=== PATIENT | male | born 1985 | race African-American/Black ===

== ENCOUNTER 2016-08-10 14:25 | Emergency (ER) | payer MEDICAID ==
--- NOTE | 2016-08-10 14:34 | ER Document Report ---
ED Medical Screen (RME) - General Chief Complaint: Flu Symptoms Stated Complaint: FLU LIKE SIMPTOMS Time seen by provider: 14:29 Mode of Arrival: Ambulatory Information source: Patient Notes: 31-year-old male presents to ED for flu-like symptoms. Bodyaches, fever, cough , nausea, vomiting diarrhea, sore throat, states even his testicles hurt. States when he lifts his testicles they were very painful. States they feel very weird. States she's never had any discomfort or change in his testicles before. Discussed condition with Dr. Tee will do ultrasound of testicles. Temperature in the ER 101.5 with a pulse 112 I have greeted and performed a rapid initial assessment of this patient. A comprehensive ED assessment and evaluation of the patient, analysis of test results and completion of medical decision making process will be conducted by an additional ED providers. TRAVEL OUTSIDE OF THE [place] IN LAST 30 DAYS: No - Related Data Allergies/Adverse Reactions: aspirin [Aspirin] Allergy (Verified 04/26/16 07:53) bees Allergy (Severe, Uncoded 04/26/16 07:53) Past Medical History - Social History Family history: Reviewed & Not Pertinent - Past Medical History Cardiac Medical History: Reports: Hx Hypertension Denies: Hx Coronary Artery Disease, Hx Heart Attack Pulmonary Medical History: Reports: Hx Asthma Denies: Hx Bronchitis, Hx COPD, Hx Pneumonia Neurological Medical History: Denies: Hx Cerebrovascular Accident, Hx Seizures GI Medical History: Reports: Hx Gastroesophageal Reflux Disease Musculoskeltal Medical History: Denies Hx Arthritis, Reports Hx Musculoskeletal Deformity, Reports Hx Musculoskeletal Trauma Past Surgical History: Reports: Hx Orthopedic Surgery - Tendon repair and right ankle - Immunizations Immunizations up to date: Yes Hx Diphtheria, Pertussis, Tetanus Vaccination: Yes - 2013
[2016-08-10] MEDS ORDERED: ACETAMINOPHEN 325 MG TABLET PO ONE (14:35)
[2016-08-10 15:00] LABS: ABSOLUTE BASOPHILS # (AUTO) 0.1 10^3/uL (0.0-0.2); ABSOLUTE LYMPHOCYTES (AUTO) 0.8 10^3/uL (0.5-4.7); ABSOLUTE MONOCYTES (AUTO) 0.9 10^3/uL (0.1-1.4); ABSOLUTE NEUT (AUTO) 4.6 10^3/uL (1.7-8.2); BASOPHILS % (AUTO) 0.9 % (0-2); EOSINOPHILS % (AUTO) 0.7 % (0-6); HEMATOCRIT 43.1 % (37.9-51.0); HEMOGLOBIN 14.2 g/dL (13.5-17.0); HGB HCT DIFFERENCE -0.5; LYMPHOCYTES % (AUTO) 12.5 % (13-45); MEAN CORPUSCULAR HEMOGLOBIN 30.3 pg (27.0-33.4); MEAN CORPUSCULAR HGB CONC 32.9 g/dL (32.0-36.0); MEAN CORPUSCULAR VOLUME 92 fl (80-97); MONOCYTES % (AUTO) 13.8 % (3-13); RED BLOOD COUNT 4.68 10^6/uL (4.35-5.55); RED CELL DISTRIBUTION WIDTH 13.4 % (11.5-14.0); SEGMENTED NEUTROPHILS % (AUTO) 72.1 % (42-78); WHITE BLOOD COUNT 6.3 10^3/uL (4.0-10.5)
[2016-08-10 15:22] LABS: BLOOD UREA NITROGEN 10 mg/dL (7-20); CALCIUM 9.1 mg/dL (8.4-10.2); CREATININE RESULT 1.31 mg/dL (0.52-1.25); GLUCOSE 157 mg/dL (75-110)
[2016-08-10 15:23] LABS: ALANINE AMINOTRANSFERASE 29 U/L (21-72); ALBUMIN 3.5 g/dL (3.5-5.0); ALKALINE PHOSPHATASE 57 U/L (38-126); ANION GAP 10 (5-19); ASPARTATE AMINO TRANSFERASE 25 U/L (17-59); BILIRUBIN,TOTAL 0.6 mg/dL (0.2-1.3); CARBON DIOXIDE 28 mmol/L (22-30); CHLORIDE 101 mmol/L (98-107); POTASSIUM 4.3 mmol/L (3.6-5.0); SODIUM 138.6 mmol/L (137-145); TOTAL PROTEIN 6.5 g/dL (6.3-8.2)
[2016-08-10] MEDS ORDERED: ONDANSETRON 4 MG TAB.RAPDIS PO ONE (17:09)
--- NOTE | 2016-08-10 17:14 | ER Document Report ---
ED General - General Chief Complaint: Flu Symptoms Stated Complaint: FLU LIKE SIMPTOMS Mode of Arrival: Ambulatory Information source: Patient Notes: Patient presents emergency department with complaints of flulike symptoms for the last 2-3 days. Patient reports testicular swelling this morning. He reports more like testicular tenderness and feels achy when he lifts his testicles. Denies pain with void. Reports fever vomiting and some diarrhea this morning. Denies penile discharge TRAVEL OUTSIDE OF THE [place] IN LAST 30 DAYS: No - HPI Onset: Other Onset/Duration: Persistent Quality of pain: Achy Severity: Severe Pain Level: 4 Associated symptoms: Diarrhea, Fever, Vomiting Exacerbated by: Denies Relieved by: Denies Similar symptoms previously: No Recently seen / treated by doctor: No - Related Data Allergies/Adverse Reactions: aspirin [Aspirin] Allergy (Verified 08/10/16 14:31) bees Allergy (Severe, Uncoded 08/10/16 14:31) Past Medical History - General Information source: Patient - Social History Smoking Status: Current Every Day Smoker Cigarette use (# per day): Yes Chew tobacco use (# tins/day): No Frequency of alcohol use: None Drug Abuse: None Occupation: [email or web address] Lives with: Family Family History: Reviewed & Not Pertinent, Arthritis, CAD - grandfather, DM - mother and father, Hyperlipidemia, Hypertension - grandfather father, Malignancy Patient has suicidal ideation: No Patient has homicidal ideation: No - Past Medical History Cardiac Medical History: Reports: Hx Hypertension Denies: Hx Coronary Artery Disease, Hx Heart Attack Pulmonary Medical History: Reports: Hx Asthma Denies: Hx Bronchitis, Hx COPD, Hx Pneumonia Neurological Medical History: Denies: Hx Cerebrovascular Accident, Hx Seizures Renal/ Medical History: Denies: Hx Peritoneal Dialysis GI Medical History: Reports: Hx Gastroesophageal Reflux Disease Musculoskeltal Medical History: Denies Hx Arthritis, Reports Hx Musculoskeletal Deformity, Reports Hx Musculoskeletal Trauma Past Surgical History: Reports: Hx Orthopedic Surgery - Tendon repair and right ankle - Immunizations Immunizations up to date: Yes Hx Diphtheria, Pertussis, Tetanus Vaccination: Yes - 2013 Review of Systems - Review of Systems Notes: Review HPI for review of systems., All other systems negative Physical Exam - Vital signs Vitals: Temp Pulse Resp BP Pulse Ox 101.5 F H 112 H 20 144/83 H 96 08/10/16 14:31 08/10/16 14:31 08/10/16 14:31 08/10/16 14:31 08/10/16 14:31 Course - Vital Signs Vital signs: Temp Pulse Resp BP Pulse Ox 99.4 F 95 16 153/91 H 98 08/10/16 18:23 08/10/16 18:23 08/10/16 18:23 08/10/16 18:23 08/10/16 18:23 - Laboratory Result Diagrams: 08/10/16 14:40 08/10/16 14:40 Laboratory results interpreted by me: 08/10/16 08/10/16 08/10/16 14:40 14:40 17:40 Lymphocytes % 12.5 L Monocytes % 13.8 H Creatinine 1.31 H Glucose 157 H Ur Leukocyte Esterase LARGE H Urine Ascorbic Acid 20 H - Transfer of Care Notes: 08/10/16 18:20 Patient has his daughter with him, testicular exam deferred because of this. I have consulted the attending provider dr gross per [facility] guidelines. pt c/o, labs and us reviewed, agrees with plan of discharge tonyaro, patient instructed on plan of care. Patient does not have a primary care provider he was instructed on the [facility]. He was also instructed for worsening of symptoms to return to the emergency department. 08/10/16 18:26 Patient reports his blood pressure medication ran out lisinopril 10 mg by mouth daily. He is requesting a refill until he can follow-up with the [facility]. Discharge - Discharge Clinical Impression: Flu-like symptoms, Testicular microlithiasis, elevated blood pressure Urinary tract infection Qualifiers: Urinary tract infection type: site unspecified Hematuria presence: without hematuria Qualified Code(s): N39.0 - Urinary tract infection, site not specified Condition: Stable Disposition: HOME, SELF-CARE Instructions: Oral Narcotic Medication ([facility]), Urinary Tract Infection ([facility]), Ciprofloxacin ([facility]) Additional Instructions: *You have been evaluated for flu like symptoms, UTI, microlithiasis, elevated blood pressure *Take medication as prescribed *Push fluids *Monitor your temperature, take tyelnol as indicated *Follow up with a primary care provider for recheck within one week *Monitor your blood pressure. Your blood pressure was elevated today. This may be because you were anxious, in pain or because you need medication. It is important to follow up with your primary care provider for full evaluation. *Plan urine recheck in one week *Return to ED for worsening condition, changes, needs Prescriptions: Ciprofloxacin HCl [Cipro 500 mg Tablet] 500 mg PO BID #10 tablet Lisinopril 10 mg PO DAILY #30 tablet Promethazine HCl [Phenergan 25 mg Tablet] 25 - 50 mg PO ASDIR PRN #12 tablet PRN Reason: Forms: Elevated Blood Pressure, Return to School, Return to Work
[2016-08-10 17:58] LABS: APPEARANCE,URINE SLIGHTLY-CLOUDY; BILIRUBIN,URINE NEGATIVE (NEGATIVE); GLUCOSE, URINE NEGATIVE (NEGATIVE); KETONES,URINE NEGATIVE (NEGATIVE); LEUKOCYTE ESTERASE,URINE LARGE (NEGATIVE); NITRITE,URINE NEGATIVE (NEGATIVE); PROTEIN,URINE NEGATIVE (NEGATIVE); URINE SPECIFIC GRAVITY 1.016; UROBILINOGEN,URINE NEGATIVE mg/dL (<2.0)
[2016-08-10] MEDS ORDERED: HYDROCODONE/ACETAMINOPHEN 5-325 MG 6 TAB/DSPK PO PRN (18:10)
[2016-08-10] MEDS ORDERED: CIPROFLOXACIN HCL 500 MG TABLET PO ONE (18:10)
[2016-08-10 18:43] VITALS: BP 153/91
== END 2016-08-10 18:43 | disposition home or self-care (01) ==
LOC: ER 14:25
DX: R19.7 Diarrhea, unspecified (principal); R11.10 Vomiting, unspecified; N39.0 Urinary tract infection, site not specified; N50.9 Disorder of male genital organs, unspecified; R50.9 Fever, unspecified; I10 Essential (primary) hypertension; J45.909 Unspecified asthma, uncomplicated; F17.210 Nicotine dependence, cigarettes, uncomplicated; Z87.19 Personal history of other diseases of the digestive system; Z91.030 Bee allergy status; Z88.6 Allergy status to analgesic agent
CPT/HCPCS: 99284; 36415; 87070; 87880; 85025; 80053; 81001; 87804; 71020; 76870; 93976; J3490 ×2; S0119

== ENCOUNTER 2016-09-01 11:02 | Emergency (ER) | payer MEDICAID ==
[2016-09-01] MEDS ORDERED: IBUPROFEN 800 MG TABLET PO ONE (11:30)
--- NOTE | 2016-09-01 11:32 | ER Document Report ---
ED Medical Screen (RME) - General Chief Complaint: Foot Pain Stated Complaint: FOOT SWELLING Mode of Arrival: Wheelchair Information source: Patient Notes: Patient presents to the emergency department with complaints of right foot pain and swelling. Patient reports this morning he was spooked by a cat and he hurt his foot. Obvious swelling noted good cap refill TRAVEL OUTSIDE OF THE [place] IN LAST 30 DAYS: No - Related Data Allergies/Adverse Reactions: bees Allergy (Severe, Uncoded 09/01/16 11:31) Past Medical History - Social History Family history: Reviewed & Not Pertinent - Past Medical History Cardiac Medical History: Reports: Hx Hypertension Denies: Hx Coronary Artery Disease, Hx Heart Attack Pulmonary Medical History: Reports: Hx Asthma Denies: Hx Bronchitis, Hx COPD, Hx Pneumonia Neurological Medical History: Denies: Hx Cerebrovascular Accident, Hx Seizures Renal/ Medical History: Denies: Hx Peritoneal Dialysis GI Medical History: Reports: Hx Gastroesophageal Reflux Disease Musculoskeltal Medical History: Denies Hx Arthritis, Reports Hx Musculoskeletal Deformity, Reports Hx Musculoskeletal Trauma Past Surgical History: Reports: Hx Orthopedic Surgery - Tendon repair and right ankle - Immunizations Immunizations up to date: Yes Hx Diphtheria, Pertussis, Tetanus Vaccination: Yes - 2013 Physical Exam - Vital signs Vitals: Temp Pulse Resp BP Pulse Ox 98.8 F 114 H 16 115/60 96 09/01/16 11:06 09/01/16 11:06 09/01/16 11:06 09/01/16 11:06 09/01/16 11:06 Course - Vital Signs Vital signs: Temp Pulse Resp BP Pulse Ox 98.8 F 114 H 16 115/60 96 09/01/16 11:06 09/01/16 11:06 09/01/16 11:06 09/01/16 11:06 09/01/16 11:06
--- NOTE | 2016-09-01 12:51 | ER Document Report ---
HPI - HPI Patient complains to provider of: foot pain Onset: This morning Onset/Duration: Sudden Quality of pain: Achy Severity: Severe Pain Level: 4 Context: Patient presents this morning with complaints of right foot pain after a cat jumped on front of him and scared him. He reports he was on his foot. Now he has swelling pain. Reports pain when walking. Associated Symptoms: None Exacerbated by: Movement, Walking Relieved by: Denies Similar symptoms previously: No Recently seen / treated by doctor: No - DERM Skin Color: Normal Past Medical History - General Information source: Patient - Social History Smoking Status: Current Every Day Smoker Cigarette use (# per day): Yes Chew tobacco use (# tins/day): No Frequency of alcohol use: None Drug Abuse: None Lives with: Family Family History: Reviewed & Not Pertinent, Arthritis, CAD - grandfather, DM - mother and father, Hyperlipidemia, Hypertension - grandfather father, Malignancy Patient has suicidal ideation: No Patient has homicidal ideation: No - Past Medical History Cardiac Medical History: Reports: Hx Hypertension Denies: Hx Coronary Artery Disease, Hx Heart Attack Pulmonary Medical History: Reports: Hx Asthma Denies: Hx Bronchitis, Hx COPD, Hx Pneumonia Neurological Medical History: Denies: Hx Cerebrovascular Accident, Hx Seizures Renal/ Medical History: Denies: Hx Peritoneal Dialysis GI Medical History: Reports: Hx Gastroesophageal Reflux Disease Musculoskeltal Medical History: Denies Hx Arthritis, Reports Hx Musculoskeletal Deformity, Reports Hx Musculoskeletal Trauma Past Surgical History: Reports: Hx Orthopedic Surgery - Tendon repair and right ankle - Immunizations Immunizations up to date: Yes Hx Diphtheria, Pertussis, Tetanus Vaccination: Yes - 2014 [facility] Provider Document - CONSTITUTIONAL Agree With Documented VS: Yes Exam Limitations: No Limitations General Appearance: WD/WN, Mild Distress - Winces with foot is palpated - INFECTION CONTROL TRAVEL OUTSIDE OF THE [place] IN LAST 30 DAYS: No - HEENT HEENT: Atraumatic, Normocephalic - NECK Neck: Supple - RESPIRATORY Respiratory: Breath Sounds Normal O2 Sat by Pulse Oximetry: 96 - CARDIOVASCULAR Cardiovascular: Tachycardia - MUSCULOSKELETAL/EXTREMETIES Musculoskeletal/Extremeties: MAEW, FROM, Tender - right dorsal midfoot with swelling, no warmth/erythema, good cap refill, reports he cannot extend/flex foot or wiggle his toes- healed surgical scar noted - NEURO Level of Consciousness: Awake, Alert, Appropriate - DERM Integumentary: Warm, Dry Adult Front & Back Diagram: 1 - swelling Course - Re-evaluation Re-evalutation: 09/01/16 13:[address] Clark to take a look at patient foot because he reports he cannot flex or extend his foot. He also reports he cannot wiggle his toes. Patient reports he hasn't been able to wiggle his toes as much since he had that tendon injury but morbidly he can now. Dr. Clark in to assess patient's foot. He agrees is noninfectious. Good cap refill, Pt has swelling dorsally across top of foot, +1. Patient was instructed on the importance of follow-up with Dr. Scott for recheck. He verbalized understanding. He was also instructed on signs and symptoms of infection and instructed to return to the emergency department immediately for any of those symptoms. - Vital Signs Vital signs: Temp Pulse Resp BP Pulse Ox 98.8 F 114 H 16 115/60 96 09/01/16 11:06 09/01/16 11:06 09/01/16 11:06 09/01/16 11:06 09/01/16 11:06 - Diagnostic Test Radiology reviewed: Image reviewed, Reports reviewed - IMPRESSION: DORSAL SOFT TISSUE SWELLING. NO ACUTE BONY FINDINGS Procedures - Immobilization Right Foot Pre-Proc Neuro Vasc Exam: Normal Immobilizer type: Zeferino wrap Performed by: PCT Post-Proc Neuro Vasc Exam: Unchanged from pre-exam Discharge - Discharge Clinical Impression: Right foot pain Contusion, foot Qualifiers: Encounter type: initial encounter Laterality: right Qualified Code(s): S90.31XA - Contusion of right foot, initial encounter Condition: Stable Disposition: HOME, SELF-CARE Instructions: Contusion ([facility]), Oral Narcotic Medication ([facility]), Zeferino Wrap ([facility]), Ice & Elevation ([facility]), Use of Crutches ([facility]) Additional Instructions: *You have been evaluated for right foot pain, contusion *Maintain the Zeferino wrap and use the crutches for the next 3 days. *Rest/Ice/Elevate your foot *Follow up with orthopedics- Dr Scott tomorrow-call for an appointment *Take medication as prescribed *Return to the emergency department immediately for any signs of infection such as warmth redness increased swelling and increased pain *Return to ED for worsening condition, changes, needs Prescriptions: Oxycodone HCl/Acetaminophen [Percocet 5-325 mg Tablet] 1 - 2 tab PO ASDIR PRN # 15 tablet PRN Reason: Forms: Return to Work
[2016-09-01] MEDS ORDERED: OXYCODONE-ACETAMINOPHEN 5-325 MG TABLET PO ONE (13:06)
[2016-09-01 13:37] VITALS: BP 140/85
== END 2016-09-01 13:37 | disposition home or self-care (01) ==
LOC: ER 11:02
DX: S90.31XA Contusion of right foot, initial encounter (principal); M79.671 Pain in right foot; F17.210 Nicotine dependence, cigarettes, uncomplicated; X58.XXXA Exposure to other specified factors, initial encounter; I10 Essential (primary) hypertension
CPT/HCPCS: 99283; 73630; J3490

== ENCOUNTER 2016-10-10 04:18 | Emergency (ER) | payer SELFPAY ==
[2016-10-10] MEDS ORDERED: LIDOCAINE 5% (700 MG) TRANSDERMAL ADH..PATCH TP ONE (06:46)
[2016-10-10] MEDS ORDERED: ACETAMINOPHEN 325 MG TABLET PO ONE (06:46)
--- NOTE | 2016-10-10 08:23 | ER Document Report ---
ED General - General Chief Complaint: Fall Stated Complaint: FALL,BACK PAIN TRAVEL OUTSIDE OF THE [place] IN LAST 30 DAYS: No - HPI Patient complains to provider of: slipped and fall head pain back pain Notes: Patient coming in for complaints of head pain and lower back pain after a slip and fall. Patient states he was staying at a local motel [place] he slipped on some water hitting his head on a countertop states he is unsure about loss of consciousness but states he was a little dazed and confused upon EMS arrival. Patient was placed in a c-collar by EMS. Patient also complains of lower back pain. Denies any bowel or bladder incontinence. Denies any numbness tingling going down the legs. Patient is requesting water to drink - Related Data Allergies/Adverse Reactions: bees Allergy (Severe, Uncoded 09/01/16 11:31) Past Medical History - Social History Smoking Status: Unknown if Ever Smoked Family History: Reviewed & Not Pertinent, Arthritis, CAD - grandfather, DM - mother and father, Hyperlipidemia, Hypertension - grandfather father, Malignancy - Past Medical History Cardiac Medical History: Reports: Hx Hypertension Denies: Hx Coronary Artery Disease, Hx Heart Attack Pulmonary Medical History: Reports: Hx Asthma Denies: Hx Bronchitis, Hx COPD, Hx Pneumonia Neurological Medical History: Denies: Hx Cerebrovascular Accident, Hx Seizures Renal/ Medical History: Denies: Hx Peritoneal Dialysis GI Medical History: Reports: Hx Gastroesophageal Reflux Disease Musculoskeltal Medical History: Denies Hx Arthritis, Reports Hx Musculoskeletal Deformity, Reports Hx Musculoskeletal Trauma Past Surgical History: Reports: Hx Orthopedic Surgery - Tendon repair and right ankle - Immunizations Immunizations up to date: Yes Hx Diphtheria, Pertussis, Tetanus Vaccination: Yes - 2013 Review of Systems - Review of Systems Constitutional: No symptoms reported EENT: Other - Head injury low back pain Cardiovascular: No symptoms reported Respiratory: No symptoms reported Gastrointestinal: No symptoms reported Genitourinary: No symptoms reported Male Genitourinary: No symptoms reported Musculoskeletal: No symptoms reported Skin: No symptoms reported Hematologic/Lymphatic: No symptoms reported Neurological/Psychological: No symptoms reported Physical Exam - Vital signs Vitals: Temp Pulse Resp BP Pulse Ox 98.5 F 75 18 153/96 H 98 10/10/16 04:20 10/10/16 04:20 10/10/16 04:20 10/10/16 04:20 10/10/16 04:20 Interpretation: Normal - General General appearance: Appears well, Alert - HEENT Head: Normocephalic, Atraumatic Eyes: Normal Pupils: PERRL Notes: The midline tenderness upon palpation of the neck. Patient has no distracting injuries. Patient's was able to be cleared by [facility] criteria. - Respiratory Respiratory status: No respiratory distress Chest status: Nontender Breath sounds: Normal Chest palpation: Normal - Cardiovascular Rhythm: Regular Heart sounds: Normal auscultation Murmur: No - Abdominal Inspection: Normal Distension: No distension Bowel sounds: Normal Tenderness: Nontender Organomegaly: No organomegaly - Back Back: Normal, Nontender - Extremities General upper extremity: Normal inspection, Nontender, Normal color, Normal ROM , Normal temperature General lower extremity: Normal inspection, Nontender, Normal color, Normal ROM , Normal temperature, Normal weight bearing. No: Sallie's sign - Neurological Neuro grossly intact: Yes Cognition: Normal Orientation: AAOx4 [place] Coma Scale Eye Opening: Spontaneous Hui Coma Scale Verbal: Oriented Hui Coma Scale Motor: Obeys Commands Hui Coma Scale Total: 15 Speech: Normal Motor strength normal: LUE, RUE, LLE, RLE Sensory: Normal - Psychological Associated symptoms: Normal affect, Normal mood - Skin Skin Temperature: Warm Skin Moisture: Dry Skin Color: Normal Course - Re-evaluation Re-evalutation: 10/10/16 14:48 CT of the head was performed on lumbar spine negative. Patient has no signs of serious etiology are critically injury at this time. Because of the patient's possible loss of consciousness and days infusion patient possibly has suffered a concussion will hold off on any narcotic pain medication patient was discharged home - Vital Signs Vital signs: Temp Pulse Resp BP Pulse Ox 97.9 F 73 18 147/89 H 98 10/10/16 08:27 10/10/16 08:27 10/10/16 08:27 10/10/16 08:27 10/10/16 08:27 Discharge - Discharge Clinical Impression: Fall Qualifiers: Encounter type: initial encounter Qualified Code(s): W19.XXXA - Unspecified fall, initial encounter Closed head injury Qualifiers: Encounter type: initial encounter Qualified Code(s): S09.90XA - Unspecified injury of head, initial encounter Low back pain Qualifiers: Chronicity: acute Back pain laterality: bilateral Sciatica presence: without sciatica Qualified Code(s): M54.5 - Low back pain Condition: Good Disposition: HOME, SELF-CARE Instructions: Low Back Pain ([facility]), Stretching Exercises for the Back ([facility]), Head Injury Precautions ([facility]), Concussion ([facility]) Additional Instructions: Drink plenty of water take medications as prescribed. You may take Tylenol also for pain control. Prescriptions: Ketorolac Tromethamine 10 mg PO BID #14 tablet Forms: Return to Work Referrals: COLEEN SALAZAR [employer] [Primary Care Provider] - Follow up as needed
[2016-10-10 08:29] VITALS: BP 147/89
== END 2016-10-10 08:39 | disposition home or self-care (01) ==
LOC: ER 04:18
DX: S09.90XA Unspecified injury of head, initial encounter (principal); M54.5 Low back pain; W01.198A Fall on same level from slipping, tripping and stumbling with subsequent striking against other object, initial encounter; Y92.59 Other trade areas as the place of occurrence of the external cause; R41.0 Disorientation, unspecified; R51 Headache; I10 Essential (primary) hypertension; J45.909 Unspecified asthma, uncomplicated
CPT/HCPCS: 70450; 72110; 99284

== ENCOUNTER 2016-12-20 19:38 | Emergency (ER) | payer SELFPAY ==
--- NOTE | 2016-12-20 21:01 | RADIOLOGY REPORT (SQ) ---
EXAM DESCRIPTION: FOOT RIGHT COMPLETE COMPLETED DATE/TIME: 12/20/2016 8:33 pm REASON FOR STUDY: PAIN COMPARISON: 09/01/2016 NUMBER OF VIEWS: Three views. TECHNIQUE: AP, lateral and oblique radiographic images acquired of the right foot. LIMITATIONS: None. FINDINGS: MINERALIZATION: Normal. BONES: No acute fracture or dislocation. No worrisome bone lesions. JOINTS: No effusions. SOFT TISSUES: No soft tissue swelling. No foreign body. OTHER: No other significant finding. IMPRESSION: No evidence for acute fracture or dislocation. Other findings as noted above TECHNICAL DOCUMENTATION: JOB ID: [id number] To- All Rights Reserved
[2016-12-20] MEDS ORDERED: HYDROMORPHONE HCL INJ/PF 2 MG/ML AMPULE IM ONE (21:28)
--- NOTE | 2016-12-20 21:53 | ER Document Report ---
ED General - General Chief Complaint: Jaw Pain Stated Complaint: FALL/LEFT FOOT,LEG AND FACE PAIN Time Seen by Provider: 12/20/16 21:21 Mode of Arrival: Wheelchair Notes: 31-year-old male presents with complaints of right foot pain and jaw pain. Patient notes he fell striking both while he was changing a tire. Denies any other complaints TRAVEL OUTSIDE OF THE [place] IN LAST 30 DAYS: No - HPI Onset: Just prior to arrival Onset/Duration: Sudden Quality of pain: Achy Severity: Mild Pain Level: 1 Associated symptoms: Body/muscle aches Exacerbated by: Movement Relieved by: Denies Similar symptoms previously: Yes Recently seen / treated by doctor: Yes - Related Data Allergies/Adverse Reactions: bees Allergy (Severe, Uncoded 09/01/16 11:31) Past Medical History - Social History Smoking Status: Never Smoker Cigarette use (# per day): No Chew tobacco use (# tins/day): No Smoking Education Provided: No Family History: Reviewed & Not Pertinent, Arthritis, CAD - grandfather, DM - mother and father, Hyperlipidemia, Hypertension - grandfather father, Malignancy Patient has suicidal ideation: No Patient has homicidal ideation: No - Past Medical History Cardiac Medical History: Reports: Hx Hypertension Denies: Hx Coronary Artery Disease, Hx Heart Attack Pulmonary Medical History: Reports: Hx Asthma Denies: Hx Bronchitis, Hx COPD, Hx Pneumonia Neurological Medical History: Denies: Hx Cerebrovascular Accident, Hx Seizures Renal/ Medical History: Denies: Hx Peritoneal Dialysis GI Medical History: Reports: Hx Gastroesophageal Reflux Disease Musculoskeltal Medical History: Denies Hx Arthritis, Reports Hx Musculoskeletal Deformity, Reports Hx Musculoskeletal Trauma Past Surgical History: Reports: Hx Orthopedic Surgery - Tendon repair and right ankle - Immunizations Immunizations up to date: Yes Hx Diphtheria, Pertussis, Tetanus Vaccination: Yes - 2013 Review of Systems - Review of Systems Notes: REVIEW OF SYSTEMS: CONSTITUTIONAL : Denies fever, chills, or sweats. Denies recent illness. EENT: Denies eye, ear, throat, or mouth pain or symptoms. Denies nasal or sinus congestion or discharge. Denies throat, tongue, or mouth swelling or difficulty swallowing. The jaw pain CARDIOVASCULAR: Denies chest pain. Denies palpitations or racing or irregular heart beat. Denies ankle edema. RESPIRATORY: Denies cough, cold, or chest congestion. Denies shortness of breath, difficulty breathing, or wheezing. GASTROINTESTINAL: Denies abdominal pain or distention. Denies nausea, vomiting , or diarrhea. Denies blood in vomitus, stools, or per rectum. Denies black, tarry stools. Denies constipation. GENITOURINARY: Denies difficulty urinating, painful urination, burning, frequency, blood in urine, or discharge. MUSCULOSKELETAL: Admits to right foot pain SKIN: Denies rash, lesions or sores. HEMATOLOGIC : Denies easy bruising or bleeding. LYMPHATIC: Denies swollen, enlarged glands. NEUROLOGICAL: Denies confusion or altered mental status. Denies passing out or loss of consciousness. Denies dizziness or lightheadedness. Denies headache. Denies weakness or paralysis or loss of use of either side. Denies problems with gait or speech. Denies sensory loss, numbness, or tingling. Denies seizures. PSYCHIATRIC: Denies anxiety or stress. Denies depression, suicidal ideation, or homicidal ideation. ALL OTHER SYSTEMS REVIEWED AND NEGATIVE. Dictation was performed using [email or web address] voice recognition software PHYSICAL EXAMINATION: GENERAL: Well-appearing, well-nourished and in no acute distress. HEAD: Atraumatic, normocephalic. EYES: Pupils equal round and reactive to light, extraocular movements intact, sclera anicteric, conjunctiva are normal. ENT: Nares patent, oropharynx clear without exudates. Moist mucous membranes. NECK: Normal range of motion, supple without lymphadenopathy clicking o nthe left noted when opening his jaw LUNGS: Breath sounds clear to auscultation bilaterally and equal. No wheezes rales or rhonchi. HEART: Regular rate and rhythm without murmurs ABDOMEN: Soft, nontender, nondistended abdomen. No guarding, no rebound. No masses appreciated. Musculoskeletal: Normal range of motion, no pitting or edema. No cyanosis. NEUROLOGICAL: Cranial nerves grossly intact. Normal speech, normal gait. Normal sensory, motor exams PSYCH: Normal mood, normal affect. SKIN: old scar right foot Physical Exam - Vital signs Vitals: Temp Pulse Resp BP Pulse Ox 97.9 F 113 H 16 150/92 H 98 12/20/16 19:42 12/20/16 19:42 12/20/16 19:42 12/20/16 19:42 12/20/16 19:42 Course - Re-evaluation Re-evalutation: 12/20/16 21:[address] are pending at this time 12/20/16 22:[address] noted no acute abnormality. will dc home with pain control and follow up with ENT 12/20/16 22:58 After performing a Medical Screening Examination, I estimate there is LOW risk for INTRACRANIAL HEMORRHAGE, UNSTABLE SPINE FRACTURE, CENTRAL CORD SYNDROME, CAUDA EQUINA, THORACIC AORTIC DISSECTION, PNEUMOTHORAX, PERFORATED BOWEL, RUPTURED ABDOMINAL AORTIC ANEURYSM, ACUTE TENDON RUPTURE, COMPARTMENT SYNDROME, or OPEN FRACTURE, thus I consider the discharge disposition reasonable. Also, there is no evidence or peritonitis, sepsis, or toxicity. I have reevaluated this patient multiple times and no significant life threatening changes are noted. The patient and I have discussed the diagnosis and risks, and we agree with discharging home to follow-up with their primary doctor with the understanding that symptoms and presentations can change. We also discussed returning to the Emergency Department immediately if new or worsening symptoms occur. We have discussed the symptoms which are most concerning (e.g., bloody stool, fever, changing or worsening pain, vomiting) that necessitate immediate return. - Vital Signs Vital signs: Temp Pulse Resp BP Pulse Ox 97.9 F 113 H 16 150/92 H 98 12/20/16 19:42 12/20/16 19:42 12/20/16 19:42 12/20/16 19:42 12/20/16 19:42 - Diagnostic Test Radiology reviewed: Image reviewed, Reports reviewed Discharge - Discharge Clinical Impression: Jaw pain Fall Qualifiers: Encounter type: initial encounter Qualified Code(s): W19.XXXA - Unspecified fall, initial encounter Foot pain Qualifiers: Laterality: right Qualified Code(s): M79.671 - Pain in right foot Condition: Stable Disposition: HOME, SELF-CARE Instructions: Jaw Dislocation ([facility]) Additional Instructions: call for appointment with [facility] * Directions * Website * Address: [address], [place] [address] * Prescriptions: Hydrocodone/Acetaminophen [Clayton 5-325 mg Tablet] 1 tab PO Q6 #10 tablet
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
[2016-12-21 01:12] VITALS: BP 149/95
== END 2016-12-20 23:15 | disposition home or self-care (01) ==
LOC: ER 19:38
DX: M79.671 Pain in right foot (principal); R68.84 Jaw pain; W19.XXXA Unspecified fall, initial encounter; Y93.89 Activity, other specified; I10 Essential (primary) hypertension; J45.909 Unspecified asthma, uncomplicated; Z91.013 Allergy to seafood
CPT/HCPCS: 99284; 96372; 73630; 70486; J1170

== ENCOUNTER 2017-02-16 16:04 | Emergency (ER) | payer SELFPAY ==
[2017-02-16] MEDS ORDERED: HYDROCODONE/ACETAMINOPHEN 5-325 MG TABLET PO ONE (16:14)
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
[2017-02-16] MEDS ORDERED: MORPHINE SULFATE 10 MG/ML INJ IV ONE (17:42)
== END 2017-02-16 18:38 | disposition short-term general hospital (02) ==
LOC: ER 16:04
PROC: 2W3CX1Z Immobilization of Right Lower Arm using Splint (ICD-10-PCS; principal; 2017-02-16)
DX: S62.304B Unspecified fracture of fourth metacarpal bone, right hand, initial encounter for open fracture (principal); X95.9XXA Assault by unspecified firearm discharge, initial encounter; Y93.89 Activity, other specified; Y92.830 Public park as the place of occurrence of the external cause; R20.8 Other disturbances of skin sensation; I10 Essential (primary) hypertension; F17.200 Nicotine dependence, unspecified, uncomplicated; J45.909 Unspecified asthma, uncomplicated; Z91.030 Bee allergy status
CPT/HCPCS: 99285; 96374; 73130; 29125; J2270

== ENCOUNTER 2017-02-25 11:58 | Emergency (ER) | payer SELFPAY ==
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
[2017-02-25 12:38] LABS: ABSOLUTE BASOPHILS # (AUTO) 0.1 10^3/uL (0.0-0.2); ABSOLUTE EOSINOPHILS # (AUTO) 0.1 10^3/uL (0.0-0.6); ABSOLUTE LYMPHOCYTES (AUTO) 2.3 10^3/uL (0.5-4.7); ABSOLUTE MONOCYTES (AUTO) 0.6 10^3/uL (0.1-1.4); ABSOLUTE NEUT (AUTO) 5.9 10^3/uL (1.7-8.2); BASOPHILS % (AUTO) 0.9 % (0-2); EOSINOPHILS % (AUTO) 0.9 % (0-6); HEMATOCRIT 42.8 % (37.9-51.0); HEMOGLOBIN 14.4 g/dL (13.5-17.0); HGB HCT DIFFERENCE 0.4; LYMPHOCYTES % (AUTO) 25.3 % (13-45); MEAN CORPUSCULAR HEMOGLOBIN 31.3 pg (27.0-33.4); MEAN CORPUSCULAR HGB CONC 33.7 g/dL (32.0-36.0); MEAN CORPUSCULAR VOLUME 93 fl (80-97); MONOCYTES % (AUTO) 6.3 % (3-13); RED CELL DISTRIBUTION WIDTH 13.3 % (11.5-14.0); SEGMENTED NEUTROPHILS % (AUTO) 66.6 % (42-78); WHITE BLOOD COUNT 8.9 10^3/uL (4.0-10.5)
[2017-02-25] MEDS ORDERED: OXYCODONE-ACETAMINOPHEN 5-325 MG TABLET PO ONE (12:53)
[2017-02-25 12:54] LABS: ANION GAP 11 (5-19); BLOOD UREA NITROGEN 10 mg/dL (7-20); CALCIUM 9.4 mg/dL (8.4-10.2); CARBON DIOXIDE 25 mmol/L (22-30); CHLORIDE 104 mmol/L (98-107); CREATININE RESULT 1.18 mg/dL (0.52-1.25); GLUCOSE 106 mg/dL (75-110); POTASSIUM 4.6 mmol/L (3.6-5.0); SODIUM 139.9 mmol/L (137-145)
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
[2017-02-25] MEDS ORDERED: CEPHALEXIN 500 MG CAPSULE PO ONE (13:26)
[2017-02-25 13:43] VITALS: BP 149/95
== END 2017-02-25 13:42 | disposition home or self-care (01) ==
LOC: ER 11:58
PROC: 2W3CX1Z Immobilization of Right Lower Arm using Splint (ICD-10-PCS; principal; 2017-02-25)
DX: M79.641 Pain in right hand (principal); G89.18 Other acute postprocedural pain; F17.200 Nicotine dependence, unspecified, uncomplicated; I10 Essential (primary) hypertension
CPT/HCPCS: 36415; 80048; 85025; 87040; 99283

== ENCOUNTER 2017-03-02 19:42 | Emergency (ER) | payer SELFPAY ==
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
[2017-03-02 22:23] VITALS: BP 142/101
[2017-03-02] MEDS ORDERED: OXYCODONE-ACETAMINOPHEN 5-325 MG TABLET PO ONE (22:45)
[2017-03-02] MEDS ORDERED: CEPHALEXIN 500 MG CAPSULE PO ONE (22:45)
[2017-03-02] MEDS ORDERED: HYDROCODONE/ACETAMINOPHEN 5-325 MG 6 TAB/DSPK PO PRN (23:20)
== END 2017-03-02 23:41 | disposition home or self-care (01) ==
LOC: ER 19:42
DX: G89.18 Other acute postprocedural pain (principal); M79.641 Pain in right hand; I10 Essential (primary) hypertension; J45.909 Unspecified asthma, uncomplicated; Z91.030 Bee allergy status
CPT/HCPCS: 99283

== ENCOUNTER 2017-03-09 18:37 | Emergency (ER) | payer SELFPAY ==
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
--- NOTE | 2017-03-09 21:36 | RADIOLOGY REPORT (SQ) ---
EXAM DESCRIPTION: HAND RIGHT 3 VIEWS COMPLETED DATE/TIME: 03/09/2017 9:17 pm REASON FOR STUDY: Pending swelling postop to the right hand COMPARISON: 02/25/2017 EXAM PARAMETERS: NUMBER OF VIEWS: Three views. TECHNIQUE: AP, lateral and oblique radiographic images acquired of the right hand. LIMITATIONS: None. FINDINGS: MINERALIZATION: Normal. BONES: Similar appearance of comminuted 4th metacarpal fracture and K-wire fixation across the 3rd th rough 5th metacarpal heads. No acute fracture or dislocation. JOINTS: No effusions. SOFT TISSUES: Dorsal soft tissue swelling. OTHER: No other significant finding. IMPRESSION: Similar appearance of comminuted 4th metacarpal fracture and K-wire fixation across the 3rd through 5th metacarpal heads. TECHNICAL DOCUMENTATION: JOB ID: [id number] [employer]- All Rights Reserved
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
[2017-03-09 23:09] VITALS: BP 148/92
== END 2017-03-09 23:05 | disposition home or self-care (01) ==
LOC: ER 18:37
DX: S62.304D Unspecified fracture of fourth metacarpal bone, right hand, subsequent encounter for fracture with routine healing (principal); W34.00XD Accidental discharge from unspecified firearms or gun, subsequent encounter; M62.838 Other muscle spasm; M79.641 Pain in right hand; J45.909 Unspecified asthma, uncomplicated; I10 Essential (primary) hypertension; F17.200 Nicotine dependence, unspecified, uncomplicated; Z98.890 Other specified postprocedural states; Z91.030 Bee allergy status
CPT/HCPCS: 99283

== ENCOUNTER 2017-03-17 15:48 | Emergency (ER) | payer SELFPAY ==
[2017-03-17] MEDS ORDERED: OXYCODONE-ACETAMINOPHEN 5-325 MG TABLET PO ONE (16:05)
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
--- NOTE | 2017-03-17 16:51 | RADIOLOGY REPORT (SQ) ---
EXAM DESCRIPTION: HAND RIGHT 3 VIEWS COMPLETED DATE/TIME: 03/17/2017 4:29 pm REASON FOR STUDY: s/p surg: with pins COMPARISON: 02/25/2017. EXAM PARAMETERS: NUMBER OF VIEWS: Three views. TECHNIQUE: AP, lateral and oblique radiographic images acquired of the right hand. LIMITATIONS: None. FINDINGS: MINERALIZATION: Normal. BONES: Again seen is comminuted fracture of the 4th metacarpal with pin traversing the distal 4th and 5th metacarpals. Otherwise no acute fracture or dislocation. No worrisome bone lesions. JOINTS: No effusions. SOFT TISSUES: No soft tissue swelling. No foreign body. OTHER: No other significant finding. IMPRESSION: NO CHANGE IN APPEARANCE OF THE FRACTURE OF THE 4TH METACARPAL AND SURGICAL HARDWARE. NO RADIOGRAPHIC EVIDENCE OF ACUTE INJURY. TECHNICAL DOCUMENTATION: JOB ID: [id number] [employer]- All Rights Reserved
[2017-03-17 18:03] VITALS: BP 153/111
== END 2017-03-17 17:48 | disposition home or self-care (01) ==
LOC: ER 15:48
DX: M79.641 Pain in right hand (principal); I10 Essential (primary) hypertension; Z98.890 Other specified postprocedural states; X58.XXXA Exposure to other specified factors, initial encounter
CPT/HCPCS: 99282

== ENCOUNTER 2017-03-26 17:48 | Emergency (ER) | payer SELFPAY ==
[2017-03-26] MEDS ORDERED: CLONIDINE HCL 0.2 MG TABLET PO ONE (18:11)
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
--- NOTE | 2017-03-26 18:53 | RADIOLOGY REPORT (SQ) ---
EXAM DESCRIPTION: HAND RIGHT 3 VIEWS COMPLETED DATE/TIME: 03/26/2017 6:25 pm REASON FOR STUDY: R hand pain/s/p surgery COMPARISON: 03/17/2017 EXAM PARAMETERS: NUMBER OF VIEWS: Three views. TECHNIQUE: AP, lateral and oblique radiographic images acquired of the right hand. LIMITATIONS: None. FINDINGS: MINERALIZATION: Normal. BONES: Re- demonstration of a comminuted fracture of the 4th metacarpal distal diaphysis. The previo us percutaneous fixation hardware has been removed in the study interval. JOINTS: No effusions. SOFT TISSUES: Mild diffuse soft tissue swelling. No retained radiopaque foreign body. OTHER: No other significant finding. IMPRESSION: Interval removal of cutaneous fixation hardware. Otherwise grossly stable appearance of a previously characterized comminuted fracture of the 4th metacarpal. TECHNICAL DOCUMENTATION: JOB ID: [id number]- All Rights Reserved
[2017-03-26] MEDS ORDERED: OXYCODONE-ACETAMINOPHEN 5-325 MG TABLET PO ONE (19:22)
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
[2017-03-26 21:16] VITALS: BP 142/101
== END 2017-03-26 21:45 | disposition home or self-care (01) ==
LOC: ER 17:48
PROC: 2W3EX1Z Immobilization of Right Hand using Splint (ICD-10-PCS; principal; 2017-03-26)
DX: S69.81XA Other specified injuries of right wrist, hand and finger(s), initial encounter (principal); X58.XXXA Exposure to other specified factors, initial encounter; Y92.007 Garden or yard of unspecified non-institutional (private) residence as the place of occurrence of the external cause; Z91.030 Bee allergy status; I10 Essential (primary) hypertension
CPT/HCPCS: 99283

== ENCOUNTER 2017-05-10 16:42 | Emergency (ER) | payer SELFPAY ==
[2017-05-10] MEDS ORDERED: HYDROCODONE/ACETAMINOPHEN 5-325 MG TABLET PO ONE (18:10)
--- NOTE | 2017-05-10 18:40 | RADIOLOGY REPORT (SQ) ---
EXAM DESCRIPTION: HAND RIGHT 3 VIEWS COMPLETED DATE/TIME: 05/10/2017 6:30 pm REASON FOR STUDY: fall/pain COMPARISON: 03/17/2017 EXAM PARAMETERS: NUMBER OF VIEWS: Three views. TECHNIQUE: AP, lateral and oblique radiographic images acquired of the right hand. LIMITATIONS: None. FINDINGS: MINERALIZATION: Normal. BONES: The previously described comminuted fracture of the 4th metacarpal is again identified and medardo ears essentially unchanged. No acute fractures are identified. JOINTS: No effusions. SOFT TISSUES: No soft tissue swelling. No foreign body. OTHER: No other significant finding. IMPRESSION: No acute fracture dislocation. The previously described comminuted fracture of the 4th metacarpal is again identified and appears essentially unchanged. TECHNICAL DOCUMENTATION: JOB ID: [id number] [employer]- All Rights Reserved
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
[2017-05-10 19:17] VITALS: BP 139/101
== END 2017-05-10 19:17 | disposition home or self-care (01) ==
LOC: ER 16:42
DX: S60.221A Contusion of right hand, initial encounter (principal); W18.2XXA Fall in (into) shower or empty bathtub, initial encounter; Y93.89 Activity, other specified; Z98.890 Other specified postprocedural states; R00.0 Tachycardia, unspecified; I10 Essential (primary) hypertension; J45.909 Unspecified asthma, uncomplicated; F17.200 Nicotine dependence, unspecified, uncomplicated; Z91.030 Bee allergy status
CPT/HCPCS: 99283

== ENCOUNTER 2017-06-21 09:36 | Emergency (ER) | payer SELFPAY ==
[2017-06-21 09:50] VITALS: BP 128/79
[2017-06-21] MEDS ORDERED: PREDNISONE 20 MG TABLET PO ONE (10:18)
[2017-06-21] MEDS ORDERED: ONDANSETRON HCL INJ/PF 4 MG/2 ML SDV IV ONE (10:18)
[2017-06-21] MEDS ORDERED: ASPIRIN 81 MG TABLET, CHEWABLE PO ONE (10:18)
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
--- NOTE | 2017-06-21 10:58 | RADIOLOGY REPORT (SQ) ---
EXAM DESCRIPTION: CHEST PA/LAT COMPLETED DATE/TIME: 06/21/2017 10:47 am REASON FOR STUDY: cough, cp COMPARISON: 08/10/2016. EXAM PARAMETERS: NUMBER OF VIEWS: two views TECHNIQUE: Digital Frontal and Lateral radiographic views of the chest acquired. RADIATION DOSE: NA LIMITATIONS: none FINDINGS: LUNGS AND PLEURA: No opacities, masses or pneumothorax. No pleural effusion. MEDIASTINUM AND HILAR STRUCTURES: No masses or contour abnormalities. HEART AND VASCULAR STRUCTURES: Heart normal size. No evidence for failure. BONES: No acute findings. HARDWARE: None in the chest. OTHER: No other significant finding. IMPRESSION: NO SIGNIFICANT RADIOGRAPHIC FINDING IN THE CHEST. TECHNICAL DOCUMENTATION: JOB ID: [id number] [employer] All Rights Reserved
[2017-06-21 11:27] LABS: ABSOLUTE BASOPHILS # (AUTO) 0.1 10^3/uL (0.0-0.2); ABSOLUTE EOSINOPHILS # (AUTO) 0.1 10^3/uL (0.0-0.6); ABSOLUTE LYMPHOCYTES (AUTO) 2.6 10^3/uL (0.5-4.7); ABSOLUTE MONOCYTES (AUTO) 0.6 10^3/uL (0.1-1.4); ABSOLUTE NEUT (AUTO) 4.8 10^3/uL (1.7-8.2); BASOPHILS % (AUTO) 0.7 % (0-2); EOSINOPHILS % (AUTO) 0.7 % (0-6); HEMATOCRIT 44.4 % (37.9-51.0); HEMOGLOBIN 15.3 g/dL (13.5-17.0); HGB HCT DIFFERENCE 1.5; LYMPHOCYTES % (AUTO) 32.4 % (13-45); MEAN CORPUSCULAR HEMOGLOBIN 31.7 pg (27.0-33.4); MEAN CORPUSCULAR HGB CONC 34.5 g/dL (32.0-36.0); MEAN CORPUSCULAR VOLUME 92 fl (80-97); MONOCYTES % (AUTO) 6.9 % (3-13); RED BLOOD COUNT 4.83 10^6/uL (4.35-5.55); RED CELL DISTRIBUTION WIDTH 13.7 % (11.5-14.0); SEGMENTED NEUTROPHILS % (AUTO) 59.3 % (42-78); WHITE BLOOD COUNT 8.1 10^3/uL (4.0-10.5)
[2017-06-21 11:42] LABS: ALANINE AMINOTRANSFERASE 27 U/L (21-72); ALBUMIN 3.9 g/dL (3.5-5.0); ALKALINE PHOSPHATASE 66 U/L (38-126); ANION GAP 9 (5-19); ASPARTATE AMINO TRANSFERASE 23 U/L (17-59); BILIRUBIN,DIRECT 0.3 mg/dL (0.0-0.4); BILIRUBIN,TOTAL 0.4 mg/dL (0.2-1.3); BLOOD UREA NITROGEN 15 mg/dL (7-20); CALCIUM 9.8 mg/dL (8.4-10.2); CARBON DIOXIDE 30 mmol/L (22-30); CHLORIDE 104 mmol/L (98-107); CREATINE KINASE 268 U/L (55-170); CREATININE RESULT 1.26 mg/dL (0.52-1.25); GLUCOSE 96 mg/dL (75-110); LIPASE 75.4 U/L (23-300); POTASSIUM 5.3 mmol/L (3.6-5.0); SODIUM 143.3 mmol/L (137-145); TOTAL PROTEIN 6.8 g/dL (6.3-8.2)
[2017-06-21] MEDS ORDERED: IPRATROPIUM/ALBUTEROL 0.5-2.5 MG/3 ML AMPUL NEB ONE (11:50)
--- NOTE | 2017-06-21 11:52 | EKG REPORT ---
SEVERITY:- BORDERLINE ECG - SINUS TACHYCARDIA RIGHT AXIS DEVIATION BORDERLINE R WAVE PROGRESSION, ANTERIOR LEADS : Confirmed by: Tomy Barger 21-Jun-2017 11:50:51
[2017-06-21 11:54] LABS: CREATINE KINASE MB 0.81 ng/mL (<4.55)
[2017-06-21 11:56] LABS: TROPONIN I < 0.012 ng/mL
[2017-06-21] MEDS ORDERED: SODIUM POLYSTYRENE SULFONATE 15 GM/60 ML PO ONE (13:45)
== END 2017-06-21 14:15 | disposition home or self-care (01) ==
LOC: ER 09:36
DX: J06.9 Acute upper respiratory infection, unspecified (principal); E87.5 Hyperkalemia; R94.4 Abnormal results of kidney function studies; J45.909 Unspecified asthma, uncomplicated; R05 Cough; R11.2 Nausea with vomiting, unspecified; R07.1 Chest pain on breathing; R07.89 Other chest pain; R19.7 Diarrhea, unspecified; I10 Essential (primary) hypertension; Z82.49 Family history of ischemic heart disease and other diseases of the circulatory system
CPT/HCPCS: 93005; 94640; 99285; 96374; 36415; 82553; 82550; 83690; 85025; 80053; 84484; 71020; 93010; J7512; J2405; J7620

== ENCOUNTER → 2017-06-24 | Outpatient (CLI) | payer SELFPAY ==
[2017-06-24 09:42] LABS: ANION GAP 9 (5-19); BLOOD UREA NITROGEN 9 mg/dL (7-20); CALCIUM 9.2 mg/dL (8.4-10.2); CARBON DIOXIDE 28 mmol/L (22-30); CHLORIDE 103 mmol/L (98-107); CREATININE RESULT 1.14 mg/dL (0.52-1.25); GLUCOSE 196 mg/dL (75-110); POTASSIUM 4.6 mmol/L (3.6-5.0); SODIUM 140.1 mmol/L (137-145)
== END ==
LOC: LAB 08:52
PROVIDERS: ATTEND Nurse Practitioner Family
DX: R94.4 Abnormal results of kidney function studies (principal); E78.5 Hyperlipidemia, unspecified; R05 Cough; R11.2 Nausea with vomiting, unspecified
CPT/HCPCS: 36415; 80048

== ENCOUNTER 2017-08-22 09:28 | Emergency (ER) | payer SELFPAY ==
[2017-08-22] MEDS ORDERED: IBUPROFEN 600 MG TABLET PO ONE (10:09)
[2017-08-22 11:03] LABS: A TYPE INFLUENZA AG NEGATIVE (NEGATIVE); B INFLUENZA AG NEGATIVE (NEGATIVE)
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
[2017-08-22 11:50] VITALS: BP 153/103
== END 2017-08-22 11:52 | disposition home or self-care (01) ==
LOC: ER 09:28
DX: J06.9 Acute upper respiratory infection, unspecified (principal); H10.9 Unspecified conjunctivitis; R53.1 Weakness; I10 Essential (primary) hypertension; Z91.030 Bee allergy status
CPT/HCPCS: 87804; 99283

== ENCOUNTER 2017-09-17 12:03 | Emergency (ER) | payer MEDICAID ==
[2017-09-17] MEDS ORDERED: HYDROCODONE/ACETAMINOPHEN 5-325 MG TABLET PO ONE (13:05)
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
[2017-09-17 14:29] VITALS: BP 150/103
== END 2017-09-17 14:30 | disposition home or self-care (01) ==
LOC: ER 12:03
DX: S63.91XA Sprain of unspecified part of right wrist and hand, initial encounter (principal); W23.0XXA Caught, crushed, jammed, or pinched between moving objects, initial encounter; F17.200 Nicotine dependence, unspecified, uncomplicated; I10 Essential (primary) hypertension; J45.909 Unspecified asthma, uncomplicated; Z87.81 Personal history of (healed) traumatic fracture; Z98.890 Other specified postprocedural states
CPT/HCPCS: 99283

== ENCOUNTER 2017-11-16 16:08 | Emergency (ER) | payer SELFPAY ==
[2017-11-16 16:15] VITALS: BP 147/98
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
== END 2017-11-16 17:29 | disposition home or self-care (01) ==
LOC: ER 16:08
DX: S09.93XA Unspecified injury of face, initial encounter (principal); R68.84 Jaw pain; W51.XXXA Accidental striking against or bumped into by another person, initial encounter; Y93.67 Activity, basketball; I10 Essential (primary) hypertension; J45.909 Unspecified asthma, uncomplicated
CPT/HCPCS: 70486; 99283

== ENCOUNTER 2018-02-20 05:55 | Emergency (ER) | payer MEDICAID ==
[2018-02-20] MEDS ORDERED: NORMAL SALINE 1000 ML 1,000 ML IV ONE (06:10)
[2018-02-20] MEDS ORDERED: ONDANSETRON HCL INJ/PF 4 MG/2 ML SDV ONE (06:22)
[2018-02-20] MEDS ORDERED: ONDANSETRON HCL INJ/PF 4 MG/2 ML SDV IV ONE (06:33)
[2018-02-20] MEDS ORDERED: KETOROLAC TROMETHAMINE INJ/PF 30 MG/1 ML SDV IV ONE (06:35)
--- NOTE | 2018-02-20 06:36 | ER Document Report ---
ED General - General Chief Complaint: Nausea/Vomiting Stated Complaint: VOMITING Time Seen by Provider: 02/20/18 06:34 Notes: 32-year-old male to the emergency department complaining of "I have got the flu ". States that he has had intermittent chills, fevers, body aches, abdominal discomfort and generally not feeling well. Has not felt like eating. Has not had a bowel movement in 2 days but began taking Pepto-Bismol 3 days ago. States that he drank about half a bottle 2 days ago and has not had a bowel movement in 2 days. Denies any syncope. Denies any chest pain or shortness of breath at this time. TRAVEL OUTSIDE OF THE [place] IN LAST 30 DAYS: No - HPI Onset: Yesterday Onset/Duration: Gradual, Persistent Quality of pain: Achy Severity: Mild Pain Level: 0 Associated symptoms: Body/muscle aches, Fever, Weakness Exacerbated by: Denies - Related Data Allergies/Adverse Reactions: bees Allergy (Severe, Uncoded 02/20/18 05:56) Past Medical History - General Information source: Patient - Social History Smoking Status: Current Every Day Smoker Cigarette use (# per day): Yes Frequency of alcohol use: None Drug Abuse: None Lives with: Family Family History: Arthritis, CAD - grandfather, DM - mother and father, Hyperlipidemia, Hypertension - grandfather father, Malignancy Patient has suicidal ideation: No Patient has homicidal ideation: No - Past Medical History Cardiac Medical History: Reports: Hx Hypertension Denies: Hx Coronary Artery Disease, Hx Heart Attack Pulmonary Medical History: Reports: Hx Asthma Denies: Hx Bronchitis, Hx COPD, Hx Pneumonia Neurological Medical History: Denies: Hx Cerebrovascular Accident, Hx Seizures Renal/ Medical History: Denies: Hx Peritoneal Dialysis GI Medical History: Reports: Hx Gastroesophageal Reflux Disease Musculoskeletal Medical History: Denies Hx Arthritis, Reports Hx Musculoskeletal Deformity, Reports Hx Musculoskeletal Trauma Past Surgical History: Reports: Hx Orthopedic Surgery - Tendon repair and right ankle; right hand - Immunizations Immunizations up to date: Yes Hx Diphtheria, Pertussis, Tetanus Vaccination: Yes - 2013 Review of Systems - Review of Systems Constitutional: Fever, Malaise, Weakness EENT: denies: Eye pain, Difficulty swallowing, Throat swelling Cardiovascular: denies: Chest pain, Palpitations, Heart racing Respiratory: denies: Cough, Hurts to breathe, Short of breath, Wheezing Gastrointestinal: Abdominal pain, Nausea, Vomiting. denies: Diarrhea Genitourinary: denies: Burning, Dysuria, Discharge Male Genitourinary: denies: Testicular pain, Penile discharge Musculoskeletal: Muscle pain. denies: Back pain, Leg swelling Skin: denies: Dryness, Lesions, Lumps, Rash Hematologic/Lymphatic: denies: Anemia, Blood clots, Easy bleeding, Easy bruising Neurological/Psychological: Weakness. denies: Confusion, Numbness Physical Exam - Vital signs Vitals: Temp Pulse Resp BP Pulse Ox 98.7 F 87 16 142/85 H 98 02/20/18 06:00 02/20/18 06:00 02/20/18 06:00 02/20/18 06:00 02/20/18 06:00 Interpretation: Normal - General General appearance: Appears well, Alert - HEENT Head: Normocephalic, Atraumatic Eyes: Normal Pupils: PERRL - Respiratory Respiratory status: No respiratory distress Chest status: Nontender Breath sounds: Normal Chest palpation: Normal - Cardiovascular Rhythm: Regular Heart sounds: Normal auscultation Murmur: No - Abdominal Inspection: Normal Distension: No distension Bowel sounds: Normal Tenderness: Nontender Organomegaly: No organomegaly - Back Back: Normal, Nontender - Extremities General upper extremity: Normal inspection, Nontender, Normal color, Normal ROM , Normal temperature General lower extremity: Normal inspection, Nontender, Normal color, Normal ROM , Normal temperature, Normal weight bearing. No: Sallie's sign - Neurological Neuro grossly intact: Yes Cognition: Normal Orientation: AAOx4 [place] Coma Scale Eye Opening: Spontaneous Hui Coma Scale Verbal: Oriented [place] Coma Scale Motor: Obeys Commands [place] Coma Scale Total: 15 Speech: Normal Motor strength normal: LUE, RUE, LLE, RLE Sensory: Normal - Psychological Associated symptoms: Normal affect, Normal mood - Skin Skin Temperature: Warm Skin Moisture: Dry Skin Color: Normal Course - Re-evaluation Re-evalutation: 02/20/18 08:56 Laboratory 02/20/18 02/20/18 02/20/18 06:28 06:28 06:28 WBC 8.8 RBC 4.68 Hgb 14.7 Hct 43.4 MCV 93 MCH 31.4 MCHC 33.8 RDW 13.4 Plt Count 402 Seg Neutrophils % 55.5 Lymphocytes % 33.1 Monocytes % 10.1 Eosinophils % 0.8 Basophils % 0.5 Absolute Neutrophils 4.9 Absolute Lymphocytes 2.9 Absolute Monocytes 0.9 Absolute Eosinophils 0.1 Absolute Basophils 0.0 Sodium 143.9 Potassium 4.9 Chloride 107 Carbon Dioxide 25 Anion Gap 12 BUN 14 Creatinine 1.30 H Est GFR ( Amer) > 60 Est GFR (Non-Af Amer) > 60 Glucose 106 Calcium 9.2 Total Bilirubin 0.4 Direct Bilirubin 0.3 Neonat Total Bilirubin Not Reportable Neonat Direct Bilirubin Not Reportable Neonat Indirect Bili Not Reportable AST 24 ALT 18 L Alkaline Phosphatase 49 Troponin I < 0.012 Total Protein 6.5 Albumin 3.6 Lipase 363.3 H Acute Abdomen Series 02/20/18 06:35 IMPRESSION: No acute cardiopulmonary changes Nonspecific nonobstructive bowel gas pattern Patient sitting upright now. Feels much better. Slight elevated lipase at 363 however no abdominal pain. X-rays unremarkable. Will DC at this time. - Vital Signs Vital signs: Temp Pulse Resp BP Pulse Ox 98.7 F 87 16 142/85 H 98 02/20/18 06:00 02/20/18 06:00 02/20/18 06:00 02/20/18 06:00 02/20/18 06:00 - Laboratory Result Diagrams: 02/20/18 06:28 02/20/18 06:28 Laboratory results interpreted by me: 02/20/18 06:28 Creatinine 1.30 H ALT 18 L Lipase 363.3 H - EKG Interpretation by Pa EKG shows normal: [place], Intervals, QRS Complexes, ST-T Waves [place]/QRS: RBBB Discharge - Discharge Clinical Impression: Viral syndrome Condition: Good Disposition: HOME, SELF-CARE Instructions: Viral Syndrome ([facility]) Prescriptions: Ondansetron [Zofran Odt 4 mg Tablet] 1 - 2 tab PO Q4H PRN #15 tab.rapdis PRN Reason: For Nausea/Vomiting Forms: Return to Work Referrals: AURELIANO CORRALES MD [Primary Care Provider] - Follow up as needed
[2018-02-20 06:52] LABS: ABSOLUTE EOSINOPHILS # (AUTO) 0.1 10^3/uL (0.0-0.6); ABSOLUTE LYMPHOCYTES (AUTO) 2.9 10^3/uL (0.5-4.7); ABSOLUTE MONOCYTES (AUTO) 0.9 10^3/uL (0.1-1.4); ABSOLUTE NEUT (AUTO) 4.9 10^3/uL (1.7-8.2); BASOPHILS % (AUTO) 0.5 % (0-2); EOSINOPHILS % (AUTO) 0.8 % (0-6); HEMATOCRIT 43.4 % (37.9-51.0); HEMOGLOBIN 14.7 g/dL (13.5-17.0); LYMPHOCYTES % (AUTO) 33.1 % (13-45); MEAN CORPUSCULAR HEMOGLOBIN 31.4 pg (27.0-33.4); MEAN CORPUSCULAR HGB CONC 33.8 g/dL (32.0-36.0); MEAN CORPUSCULAR VOLUME 93 fl (80-97); MONOCYTES % (AUTO) 10.1 % (3-13); PLATELET COUNT 402 10^3/uL (150-450); RED BLOOD COUNT 4.68 10^6/uL (4.35-5.55); RED CELL DISTRIBUTION WIDTH 13.4 % (11.5-14.0); SEGMENTED NEUTROPHILS % (AUTO) 55.5 % (42-78); TOTAL CELLS COUNTED % (AUTO) 100 %; WHITE BLOOD COUNT 8.8 10^3/uL (4.0-10.5)
[2018-02-20 07:42] LABS: ALANINE AMINOTRANSFERASE 18 U/L (21-72); ALBUMIN 3.6 g/dL (3.5-5.0); ALKALINE PHOSPHATASE 49 U/L (38-126); ANION GAP 12 (5-19); ASPARTATE AMINO TRANSFERASE 24 U/L (17-59); BILIRUBIN,DIRECT 0.3 mg/dL (0.0-0.4); BILIRUBIN,TOTAL 0.4 mg/dL (0.2-1.3); BLOOD UREA NITROGEN 14 mg/dL (7-20); CALCIUM 9.2 mg/dL (8.4-10.2); CARBON DIOXIDE 25 mmol/L (22-30); CHLORIDE 107 mmol/L (98-107); GLUCOSE 106 mg/dL (75-110); LIPASE 363.3 U/L (23-300); POTASSIUM 4.9 mmol/L (3.6-5.0); SODIUM 143.9 mmol/L (137-145); TOTAL PROTEIN 6.5 g/dL (6.3-8.2)
--- NOTE | 2018-02-20 07:42 | RADIOLOGY REPORT (SQ) ---
EXAM DESCRIPTION: ACUTE ABDOMEN SERIES COMPLETED DATE/TIME: 02/20/2018 7:11 am REASON FOR STUDY: abd pain COMPARISON: Two-view chest 06/21/2017 NUMBER OF VIEWS: Three views. TECHNIQUE: Frontal chest, supine abdomen and upright abdomen radiographic images acquired. LIMITATIONS: None. FINDINGS: CHEST: Lungs clear of infiltrates. Cardiac silhouette size, yariel, bony structures unremar kable. FREE AIR: None. No abnormal gas collections. BOWEL GAS PATTERN: Few air-fluid levels seen mid epigastric small bowel loops, nonspecific. Moderate stool in the ascending colon. Gas and stool in the rectosigmoid. CALCIFICATIONS: No suspicious calcifications. HARDWARE: None in the abdomen. SOFT TISSUES: No gross mass or suggestion of organomegaly. BONES: No acute fracture. No worrisome bone lesions. OTHER: No other significant finding. IMPRESSION: No acute cardiopulmonary changes Nonspecific nonobstructive bowel gas pattern TECHNICAL DOCUMENTATION: JOB ID: [id number] [employer]- All Rights Reserved Reading location - IP/workstation name: [email or web address]
[2018-02-20 09:13] VITALS: BP 116/71
== END 2018-02-20 09:12 | disposition home or self-care (01) ==
LOC: ER 05:55
DX: R50.9 Fever, unspecified (principal); B34.9 Viral infection, unspecified; M79.1 Myalgia; R11.2 Nausea with vomiting, unspecified; F17.210 Nicotine dependence, cigarettes, uncomplicated; Z91.030 Bee allergy status
CPT/HCPCS: 99284; 96374; 96375; 36415; 83690; 85025; 80053; 84484; 74022; J1885; J2405; J7030; 96361

== ENCOUNTER 2018-04-05 14:25 | Emergency (ER) | payer MEDICAID ==
[2018-04-05 14:39] VITALS: BP 146/94
[2018-04-05] MEDS ORDERED: ACETAMINOPHEN 325 MG TABLET PO ONE (15:35)
--- NOTE | 2018-04-05 15:36 | ER Document Report ---
HPI - HPI Pain Level: 5 Notes: Patient is a 32-year-old male no significant past medical history who presents to the ED complaining of right ankle pain status post injury about 3-4 hours ago. Patient states that he fell through the floor in his trailer at that time. Patient states that his leg went through in his ankle twisted inappropriately as well. He did not hit his head or lose consciousness. Patient states the pain does not radiate. Patient states that he has not been able to ambulate because of the pain. He has noticed swelling to his ankle bilaterally. Denies any drug allergies. Patient does admit to smoking but denies IV drug use. Denies any headache, fever, head injury, neck pain, URI, sore throat, chest pain, palpitations, syncope, cough, shortness of breath, wheeze, dyspnea, abdominal pain, nausea/vomiting/diarrhea, urinary retention, dysuria, hematuria, numbness/tingling, muscle paralysis/weakness, or rash. - ROS Systems Reviewed and Negative: Yes All other systems reviewed and negative Past Medical History - Social History Smoking Status: Current Every Day Smoker Family History: Arthritis, CAD - grandfather, DM - mother and father, Hyperlipidemia, Hypertension - grandfather father, Malignancy - Past Medical History Cardiac Medical History: Reports: Hx Hypertension Denies: Hx Coronary Artery Disease, Hx Heart Attack Pulmonary Medical History: Reports: Hx Asthma Denies: Hx Bronchitis, Hx COPD, Hx Pneumonia Neurological Medical History: Denies: Hx Cerebrovascular Accident, Hx Seizures Renal/ Medical History: Denies: Hx Peritoneal Dialysis GI Medical History: Reports: Hx Gastroesophageal Reflux Disease Musculoskeletal Medical History: Denies Hx Arthritis, Reports Hx Musculoskeletal Deformity, Reports Hx Musculoskeletal Trauma Past Surgical History: Reports: Hx Orthopedic Surgery - Tendon repair and right ankle; right hand - Immunizations Immunizations up to date: Yes Hx Diphtheria, Pertussis, Tetanus Vaccination: Yes - 2013 Vertical Provider Document - CONSTITUTIONAL Agree With Documented VS: Yes Notes: PHYSICAL EXAMINATION: GENERAL: Well-appearing, well-nourished and in no acute distress. LUNGS: Breath sounds clear to auscultation bilaterally and equal. No wheezes rales or rhonchi. HEART: Regular rate and rhythm without murmurs, rubs, gallops. Musculoskeletal: Rt foot/ankle: LROM to passive/active dorsiflexion. Strength 5 +/5. N/V intact distal. + tenderness to the b/l malleoli with associated swelling noted. No bony tenderness of the foot. Achilles intact. Extremities: No cyanosis, clubbing, or edema b/l. Peripheral pulses 2+. Capillary refill less than 3 seconds. NEUROLOGICAL: Normal speech. Normal sensory, motor exams PSYCH: Normal mood, normal affect. SKIN: Warm, Dry, normal turgor, no rashes or lesions noted. - INFECTION CONTROL TRAVEL OUTSIDE OF THE [place] IN LAST 30 DAYS: No Course - Re-evaluation Re-evalutation: 04/05/18 16:09 Patient is an afebrile, well-hydrated, 32-year-old male who presents to the ED with Rt ankle pain which I suspect to be a sprain versus strain. Vitals are acceptable without any significant tachycardia, tachypnea, or hypoxia. PE is otherwise unremarkable for any neurovascular compromise, obvious tendon/ ligament rupture, obvious fracture/dislocation, septic joint. X-ray was unremarkable for any acute pathology. Ankle stirrup and crutches were provided today. Ice and tylenol given. Patient is nontoxic-appearing. Patient is able to ambulate and weight-bear although he is limping. No other labs or imaging warranted at this time based on H&P. Rx for naproxen. Conservative measures otherwise for symptoms. Recheck with your PCM in 3-5 days. Consider consult orthopedics. Return to the ED with any worsening/concerning symptoms otherwise as reviewed in discharge. Patient is in agreement. - Vital Signs Vital signs: Temp Pulse Resp BP Pulse Ox 98.4 F 98 18 146/94 H 97 04/05/18 14:37 04/05/18 14:37 04/05/18 14:37 04/05/18 14:37 04/05/18 14:37 Discharge - Discharge Clinical Impression: Right ankle pain Qualifiers: Chronicity: acute Qualified Code(s): M25.571 - Pain in right ankle and joints of right foot Condition: Stable Disposition: HOME, SELF-CARE Instructions: Ankle Stirrup Splint ([facility]), Use of Crutches ([facility]), Ice & Elevation ([facility]) Additional Instructions: Rest, Ice, Compression, Elevation Use crutches/splint as directed Tylenol/ibuprofen as needed Light stretches daily Strength exercises as able Moist heat and massage may help F/u with your PCP in 3-5 days for a recheck Consider consult(s) with Orthopedics/physical therapy for ongoing/worsening symptoms Return to the ED with any worsening symptoms and/or development of fever, headache, chest pain, palpitations, syncope, shortness of breath, trouble breathing, abdominal pain, n/v/d, muscle weakness/paralysis, numbness/tingling, swelling, redness, or other worsening symptoms that are concerning to you. Prescriptions: Naproxen 500 mg PO BID PRN #30 tablet PRN Reason: Forms: Elevated Blood Pressure Referrals: AURELIANO CORRALES MD [Primary Care Provider] - Follow up as needed [facility] [Provider Group] - Follow up as needed
--- NOTE | 2018-04-05 16:04 | RADIOLOGY REPORT (SQ) ---
EXAM DESCRIPTION: ANKLE RIGHT COMPLETE COMPLETED DATE/TIME: 04/05/2018 3:55 pm REASON FOR STUDY: rt ankle pain s/p fall through floor COMPARISON: 2015 NUMBER OF VIEWS: Three views right ankle. LIMITATIONS: None. FINDINGS: Normal bone density. No fracture or lesion. Mortise maintained. Soft tissue swelling ge nerally. No effusion. OTHER: No other significant finding. IMPRESSION: Soft tissue swelling without fracture. TECHNICAL DOCUMENTATION: JOB ID: [id number] Reading location - IP/workstation name: [email or web address]
== END 2018-04-05 16:30 | disposition home or self-care (01) ==
LOC: ER 14:25
DX: M25.571 Pain in right ankle and joints of right foot (principal); F17.210 Nicotine dependence, cigarettes, uncomplicated
CPT/HCPCS: 99283; 73610; L1902; J3490

== ENCOUNTER 2018-08-19 18:21 | Emergency (ER) | payer MEDICAID ==
[2018-08-19] MEDS ORDERED: ACETAMINOPHEN 325 MG TABLET PO ONE (18:28)
--- NOTE | 2018-08-19 19:21 | RADIOLOGY REPORT (SQ) ---
EXAM DESCRIPTION: HAND RIGHT 3 VIEWS COMPLETED DATE/TIME: 08/19/2018 7:13 pm REASON FOR STUDY: Injury to right hand, pain and swelling COMPARISON: 05/10/2017 EXAM PARAMETERS: NUMBER OF VIEWS: Three views. TECHNIQUE: AP, lateral and oblique radiographic images acquired of the right hand. LIMITATIONS: None. FINDINGS: MINERALIZATION: Normal. BONES: No acute fracture or dislocation. No worrisome bone lesions. Redemonstrated callused and ang ulated fracture deformity of the right 4th metacarpal. JOINTS: No effusions. SOFT TISSUES: Diffuse soft tissue swelling. OTHER: No other significant finding. IMPRESSION: 1. Diffuse soft tissue swelling about the right hand. 2. No acute fracture or dislocation. Redemonstrated, callused and angulated fracture deformity of t he right 4th metacarpal. TECHNICAL DOCUMENTATION: JOB ID: [id number] [employer]- All Rights Reserved Reading location - IP/workstation name: [email or web address]
[2018-08-19] MEDS ORDERED: HYDROCODONE/ACETAMINOPHEN 5-325 MG TABLET PO ONE (19:39)
--- NOTE | 2018-08-19 19:45 | ER Document Report ---
ED Hand/Wrist Injury - General Chief Complaint: Hand Pain Stated Complaint: HAND INJURY Time Seen by Provider: 08/19/18 19:25 Primary Care Provider: [facility] [Provider Group] - Follow up as needed AURELIANO CORRALES MD [Primary Care Provider] - Follow up as needed VICKY GEORGE MD [ACTIVE STAFF] - Follow up as needed Mode of Arrival: Ambulatory Information source: Patient Notes: 3-year-old male presented to ED for complaint of pain and injury to his right hand. He states he went to sleep with his hand normally when he woke up he had pain and swelling. He states he believed he may have fallen at some point causing injury to his right hand. There is swelling to the dorsal aspect of the hand. He has had a fracture in his hand in the past but states he does not know of any definite injury at this time. Patient is alert and oriented respirations regular and unlabored speaking in full sentences walking with a even steady gait. TRAVEL OUTSIDE OF THE [place] IN LAST 30 DAYS: No - HPI Injury to: Hand. No: Wrist, Thumb, Index finger, Middle finger, Ring finger, Small finger Onset: This evening Where: Home Timing: Still present Quality of pain: Pressure, Sharp, Throbbing Severity: Moderate Pain Level: 4 Context: Swelling - Related Data Allergies/Adverse Reactions: bees Allergy (Severe, Uncoded 02/20/18 05:56) Past Medical History - General Information source: Patient - Social History Smoking Status: Current Every Day Smoker Cigarette use (# per day): Yes - 3-4 cigarettes a day Chew tobacco use (# tins/day): No Smoking Education Provided: Yes - 4 minutes Frequency of alcohol use: None Drug Abuse: None Lives with: Family Family History: Arthritis, CAD - grandfather, DM - mother and father, Hyperlipidemia, Hypertension - grandfather father, Malignancy Patient has suicidal ideation: No Patient has homicidal ideation: No - Past Medical History Cardiac Medical History: Reports: Hx Hypertension Pulmonary Medical History: Reports: Hx Asthma EENT Medical History: Reports: None Neurological Medical History: Reports: None Endocrine Medical History: Reports: None Renal/ Medical History: Reports: None Malignancy Medical History: Reports None GI Medical History: Reports: Hx Gastroesophageal Reflux Disease Musculoskeletal Medical History: Reports Hx Musculoskeletal Deformity, Reports Hx Musculoskeletal Trauma Skin Medical History: Reports None Psychiatric Medical History: Reports: Hx Anxiety - Panic attacks, stress Traumatic Medical History: Reports: Hx Fractures - Right fourth metacarpal Infectious Medical History: Reports: None Past Surgical History: Reports: Hx Orthopedic Surgery - Tendon repair and right ankle; right hand right fourth metacarpal fracture - Immunizations Immunizations up to date: Yes Hx Diphtheria, Pertussis, Tetanus Vaccination: Yes - 2013 Review of Systems - Review of Systems Constitutional: No symptoms reported EENT: No symptoms reported Cardiovascular: No symptoms reported Respiratory: No symptoms reported Gastrointestinal: No symptoms reported Genitourinary: No symptoms reported Male Genitourinary: No symptoms reported Musculoskeletal: Other - Pain swelling to right hand dorsal aspect Skin: No symptoms reported Hematologic/Lymphatic: No symptoms reported Neurological/Psychological: No symptoms reported -: Yes All other systems reviewed and negative Physical Exam - Vital signs Vitals: Temp Pulse Resp BP Pulse Ox 99.5 F 98 18 144/100 H 100 08/19/18 18:37 08/19/18 18:37 08/19/18 18:37 08/19/18 18:37 08/19/18 18:37 Interpretation: Normal - General General appearance: Appears well, Alert - HEENT Head: Normocephalic, Atraumatic Eyes: Normal Pupils: PERRL - Respiratory Respiratory status: No respiratory distress Chest status: Nontender Breath sounds: Normal Chest palpation: Normal - Cardiovascular Rhythm: Regular Heart sounds: Normal auscultation Murmur: No - Abdominal Inspection: Normal Distension: No distension Bowel sounds: Normal Tenderness: Nontender Organomegaly: No organomegaly - Back Back: Normal, Nontender - Extremities General upper extremity: Normal color, Normal ROM, Normal temperature General lower extremity: Normal inspection, Nontender, Normal color, Normal ROM, Normal temperature, Normal weight bearing. No: Sallie's sign Hand: Tender, Ecchymosis, No evidence of human bite, No evidence of FB, Swelling, Other - From previous surgery from right fourth metacarpal fracture.. No: Abrasion, Deformity, Dislocation, Instability, Laceration, Nail injury - Neurological Neuro grossly intact: Yes Cognition: Normal Orientation: AAOx4 [place] Coma Scale Eye Opening: Spontaneous Hui Coma Scale Verbal: Oriented Hui Coma Scale Motor: Obeys Commands [place] Coma Scale Total: 15 Speech: Normal Motor strength normal: LUE, RUE, LLE, RLE Sensory: Normal - Psychological Associated symptoms: Normal affect, Normal mood - Skin Skin Temperature: Warm Skin Moisture: Dry Skin Color: Normal Course - Re-evaluation Re-evalutation: 08/20/18 01:49 No acute injury there is diffuse swelling to the dorsal aspect of the right hand. Patient was treated with a Nunda in the emergency room and discharged home with instructions to follow-up with primary doctor and orthopedics for any continued pain or swelling. Patient verbalized understanding and agreement with treatment plan. Patient was instructed to elevate and ice the hand. - Vital Signs Vital signs: Temp Pulse Resp BP Pulse Ox 98.3 F 85 18 162/112 H 100 08/19/18 21:08 08/19/18 21:08 08/19/18 18:37 08/19/18 21:08 08/19/18 21:08 - Diagnostic Test Radiology reviewed: Image reviewed, Reports reviewed Discharge - Discharge Clinical Impression: Contusion of right hand Qualifiers: Encounter type: initial encounter Qualified Code(s): S60.221A - Contusion of right hand, initial encounter Condition: Stable Disposition: HOME, SELF-CARE Additional Instructions: CONTUSION: Your injury has resulted in a contusion -- a crushing of the deep tissues. No injury to important structures was detected during the physician's exam. Contusions vary in the amount of pain they cause, and in the length of time required for healing. Typically, the area will become bruised, and will remain painful to touch for two or three weeks. However, most patients are back to working and playing within a few days. After the initial period of rest and cold-packs, your symptoms (together with the doctor's recommendations) will determine how rapidly you can get back to full activity. Usually this means "do what feels okay, but don't do things that hurt." If re-examination was recommended, it's important to follow up as instructed. Call the doctor or return any time if pain increases, if swelling becomes severe, if you develop numbness or weakness in an injured extremity, or if any other alarming symptoms occur. USE OF TYLENOL (ACETAMINOPHEN): Acetaminophen may be taken for pain relief or fever control. It's much safer than aspirin, offering a wider range of "safe" dosages. It is safe during . Some brand names are Tylenol, Panadol, Datril, Anacin 3, Tempra, and Liquiprin. Acetaminophen can be repeated every four hours. The following are maximum recommended dosages: WEIGHT Dose Drops Elixir Chewable(80mg) (LBS.) drprs=droppers tsp=teaspoon 6 40 mg 0.4 ml (1/2) 6-11 80 mg 0.8 ml (full) tsp 1 tab 12-16 120 mg 1 1/2 drprs 3/4 tsp 1 1/2 tabs 17-23 160 mg 2 drprs 1 tsp 2 tabs 24-30 240 mg 3 drprs 1 1/2 tsp 3 tabs 30-35 320 mg 2 tsp 4 tabs 36-41 360 mg 2 1/4 tsp 4 1/2 tabs 42-47 400 mg 2 1/2 tsp 5 tabs 48-53 480 mg 3 tsp 6 tabs 54-59 520 mg 3 1/4 tsp 6 1/2 tabs 60-64 560 mg 3 1/2 tsp 7 tabs 65-70 600 mg 3 3/4 tsp 7 1/2 tabs 71-76 640 mg 4 tsp 8 tabs 77-82 720 mg 4 1/2 tsp 9 tabs 83-88 800 mg 5 tsp 10 tabs >89 pounds or adults 650 mg to 900 mg Acetaminophen can be repeated every four hours. Maximum dose not to exceed 4000 mg a day. These maximum recommended dosages are slightly higher than the dosages written on the product container, but these dosages are very safe and below the toxic dosage for acetaminophen. Ice & Elevation Apply ice packs frequently against the painful area. Many different schedules are recommended, such as "20 minutes on, 20 minutes off" or "one hour ice, two hours rest." If you need to work, you may need to go longer between ice treatments. You should plan to have the area ice packed AT LEAST one-fourth of the time. The ice should be applied over the wrap, tape, or splint, or over a layer of cloth -- not directly against the skin. Some ice bags have a built-in cloth and can be put directly on the skin. Your injured part should be elevated as much as possible over the next 48 hours. Try to keep the injury above the level of the heart. Avoid use of the in jured area. Elevation and rest will decrease the swelling. ORAL NARCOTIC MEDICATION: You have been given Nunda for pain control. This medication is a narcotic. It's best taken with food, as nausea can result if taken on an empty stomach. Don't operate machinery or drive within six hours of taking this medication. Do not combine this medicine with alcohol, or with any medication which can cause sedation (such as cold tablets or sleeping pills) unless you get permission from the physician. Narcotics tend to cause constipation. If possible, drink plenty of fluids and eat a diet high in fiber and fruits. FOLLOW-UP CARE: If you have been referred to a physician for follow-up care, call the physicians office for an appointment as you were instructed or within the next two days. If you experience worsening or a significant change in your symptoms, notify the physician immediately or return to the Emergency Department at any time for re-evaluation. Forms: Elevated Blood Pressure, Smoking Cessation Education, Return to Work Referrals: AURELIANO CORRALES MD [Primary Care Provider] - Follow up as needed VICKY GEORGE MD [ACTIVE STAFF] - Follow up as needed [facility] [Provider Group] - Follow up as needed
[2018-08-19 21:11] VITALS: BP 162/112
== END 2018-08-19 21:12 | disposition home or self-care (01) ==
LOC: ER 18:21
DX: S60.221A Contusion of right hand, initial encounter (principal); M79.89 Other specified soft tissue disorders; X58.XXXA Exposure to other specified factors, initial encounter; Z91.030 Bee allergy status; F17.210 Nicotine dependence, cigarettes, uncomplicated; Z71.6 Tobacco abuse counseling; I10 Essential (primary) hypertension; J45.909 Unspecified asthma, uncomplicated; Z82.61 Family history of arthritis
CPT/HCPCS: 99283; 73130; J3490

== ENCOUNTER 2018-10-09 23:27 | Emergency (ER) | payer MEDICAID ==
[2018-10-10] MEDS ORDERED: IPRATROPIUM/ALBUTEROL 0.5-2.5 MG/3 ML AMPUL NEB ONE ×2 (00:36→08:08)
[2018-10-10] MEDS ORDERED: PREDNISONE 20 MG TABLET PO ONE ×2 (00:37→08:08)
--- NOTE | 2018-10-10 00:37 | ER Document Report ---
Addendum entered and electronically signed by DANIELLA VIVAR NP 10/10/18 08:10: Course - Re-evaluation Re-evalutation: 10/10/18 08:08 Pt has been sleeping in the sub waiting room. called multiple times but he was sleeping so did not answer. He woke easily when I shook his shoulder. The original orders dropped off after seven hours, orders re-ordered 10/10/18 08:10 - Vital Signs Vital signs: Temp Pulse Resp BP Pulse Ox 98.0 F 86 19 135/92 H 100 10/10/18 00:35 10/10/18 00:35 10/10/18 00:35 10/10/18 00:35 10/10/18 00:35 Original Note: ED Medical Screen (RME) - General Chief Complaint: Nasal Congestion Stated Complaint: CONGESTION, COUGH Time Seen by Provider: 10/10/18 00:33 Primary Care Provider: AURELIANO CORRALES MD [Primary Care Provider] - Follow up as needed Notes: cough, congestion, subj fever x 2days. wheeze heard all lug marino. I have greeted and performed a rapid initial assessment of this patient. A comprehensive ED assessment and evaluation of the patient, analysis of test results and completion of the medical decision making process will be conducted by additional ED providers. TRAVEL OUTSIDE OF THE [place] IN LAST 30 DAYS: No - Related Data Allergies/Adverse Reactions: bees Allergy (Severe, Uncoded 02/20/18 05:56) Past Medical History - Social History Family history: Reviewed & Not Pertinent - Past Medical History Cardiac Medical History: Reports: Hx Hypertension Denies: Hx Coronary Artery Disease, Hx Heart Attack Pulmonary Medical History: Reports: Hx Asthma Denies: Hx Bronchitis, Hx COPD, Hx Pneumonia Neurological Medical History: Denies: Hx Cerebrovascular Accident, Hx Seizures Renal/ Medical History: Denies: Hx Peritoneal Dialysis GI Medical History: Reports: Hx Gastroesophageal Reflux Disease Musculoskeltal Medical History: Denies Hx Arthritis, Reports Hx Musculoskeletal Deformity, Reports Hx Musculoskeletal Trauma Psychiatric Medical History: Reports: Hx Anxiety - Panic attacks, stress Traumatic Medical History: Reports: Hx Fractures - Right fourth metacarpal Past Surgical History: Reports: Hx Orthopedic Surgery - Tendon repair and right ankle; right hand right fourth metacarpal fracture - Immunizations Immunizations up to date: Yes Hx Diphtheria, Pertussis, Tetanus Vaccination: Yes - 2013 Doctor's Discharge - Discharge Referrals: AURELIANO CORRALES MD [Primary Care Provider] - Follow up as needed
--- NOTE | 2018-10-10 08:29 | RADIOLOGY REPORT (SQ) ---
EXAM DESCRIPTION: CHEST 2 VIEWS COMPLETED DATE/TIME: 10/10/2018 8:21 am REASON FOR STUDY: cough/congestion COMPARISON: 06/21/2017 EXAM PARAMETERS: NUMBER OF VIEWS: two views TECHNIQUE: Digital Frontal and Lateral radiographic views of the chest acquired. RADIATION DOSE: NA LIMITATIONS: none FINDINGS: LUNGS AND PLEURA: No opacities, masses or pneumothorax. No pleural effusion. MEDIASTINUM AND HILAR STRUCTURES: No masses or contour abnormalities. HEART AND VASCULAR STRUCTURES: Heart normal size. No evidence for failure. BONES: No acute findings. HARDWARE: None in the chest. OTHER: No other significant finding. IMPRESSION: NO ACUTE RADIOGRAPHIC FINDING IN THE CHEST. TECHNICAL DOCUMENTATION: JOB ID: [id number] [employer]- All Rights Reserved Reading location - IP/workstation name: [email or web address]
[2018-10-10] MEDS ORDERED: ONDANSETRON 4 MG TAB.RAPDIS PO ONE (08:46)
[2018-10-10] MEDS ORDERED: ALBUTEROL SULFATE HFA (90 MCG/PUFF) 8 GM MDI (1 MDI/ER DISP) IH ONE ×2 (08:47→09:16)
[2018-10-10 09:00] VITALS: BP 145/89
--- NOTE | 2018-10-10 09:17 | ER Document Report ---
ED General - General Chief Complaint: Nasal Congestion Stated Complaint: CONGESTION, COUGH Time Seen by Provider: 10/10/18 00:33 Primary Care Provider: AURELIANO CORRALES MD [NO LOCAL MD] - Follow up as needed TRAVEL OUTSIDE OF THE [place] IN LAST 30 DAYS: No - HPI Patient complains to provider of: Congestion cough dizziness nausea vomiting feeling unwell Notes: Patient presents today with multiple complaints as stated above. Patient states that he has been ongoing for the last 24-48 hours. Patient denies any sick contacts recent travel or antibiotics. Patient is a smoker and does have a history of asthma. Patient states does not have inhalers or bronchodilator therapy at home. Denies fevers or chills. Patient upon my evaluation states he is having some nausea still no vomiting at this time states no history of diarrhea no abdominal pain and no chest pain patient states he does feel dizzy whenever moving around. Has a nonproductive cough. Patient otherwise is resting comfortably upon my evaluation with no signs of obvious distress. A brief review of the patient's past medical records available in [place] was performed - Related Data Allergies/Adverse Reactions: bees Allergy (Severe, Uncoded 02/20/18 05:56) Past Medical History - Social History Smoking Status: Current Every Day Smoker Family History: Arthritis, CAD - grandfather, DM - mother and father, Hyperlipidemia, Hypertension - grandfather father, Malignancy Patient has suicidal ideation: No Patient has homicidal ideation: No - Past Medical History Cardiac Medical History: Reports: Hx Hypertension Denies: Hx Coronary Artery Disease, Hx Heart Attack Pulmonary Medical History: Reports: Hx Asthma Denies: Hx Bronchitis, Hx COPD, Hx Pneumonia Neurological Medical History: Denies: Hx Cerebrovascular Accident, Hx Seizures Renal/ Medical History: Denies: Hx Peritoneal Dialysis GI Medical History: Reports: Hx Gastroesophageal Reflux Disease Musculoskeletal Medical History: Denies Hx Arthritis, Reports Hx Musculoskeletal Deformity, Reports Hx Musculoskeletal Trauma Psychiatric Medical History: Reports: Hx Anxiety - Panic attacks, stress Traumatic Medical History: Reports: Hx Fractures - Right fourth metacarpal Past Surgical History: Reports: Hx Orthopedic Surgery - Tendon repair and right ankle; right hand right fourth metacarpal fracture - Immunizations Immunizations up to date: Yes Hx Diphtheria, Pertussis, Tetanus Vaccination: Yes - 2013 Review of Systems - Review of Systems Constitutional: No symptoms reported EENT: Nose congestion Cardiovascular: No symptoms reported Respiratory: Cough, Short of breath, Wheezing Gastrointestinal: No symptoms reported Genitourinary: No symptoms reported Male Genitourinary: No symptoms reported Musculoskeletal: No symptoms reported Skin: No symptoms reported Hematologic/Lymphatic: No symptoms reported Neurological/Psychological: Other -: Yes All other systems reviewed and negative - Dizziness Physical Exam - Vital signs Vitals: Temp Pulse Resp BP Pulse Ox 98.0 F 86 19 135/92 H 100 10/10/18 00:35 10/10/18 00:35 10/10/18 00:35 10/10/18 00:35 10/10/18 00:35 Interpretation: Normal - General General appearance: Appears well, Alert - HEENT Head: Normocephalic, Atraumatic Eyes: Normal Pupils: PERRL - Respiratory Respiratory status: No respiratory distress Chest status: Nontender Breath sounds: Wheezing Chest palpation: Normal - Cardiovascular Rhythm: Regular Heart sounds: Normal auscultation Murmur: No - Abdominal Inspection: Normal Distension: No distension Bowel sounds: Normal Tenderness: Nontender Organomegaly: No organomegaly - Back Back: Normal, Nontender - Extremities General upper extremity: Normal inspection, Nontender, Normal color, Normal ROM, Normal temperature General lower extremity: Normal inspection, Nontender, Normal color, Normal ROM, Normal temperature, Normal weight bearing. No: Sallie's sign - Neurological Neuro grossly intact: Yes Cognition: Normal Orientation: AAOx4 [place] Coma Scale Eye Opening: Spontaneous [place] Coma Scale Verbal: Oriented Hui Coma Scale Motor: Obeys Commands [place] Coma Scale Total: 15 Speech: Normal Motor strength normal: LUE, RUE, LLE, RLE Sensory: Normal - Psychological Associated symptoms: Normal affect, Normal mood - Skin Skin Temperature: Warm Skin Moisture: Dry Skin Color: Normal Course - Re-evaluation Re-evalutation: 10/10/18 13:33 Physical examination reveals wheezing improved after breathing treatment. Chest x-ray is otherwise negative. Patient may have slight asthma exacerbation versus URI versus seasonal allergies. Recommend patient start on bronchodilator therapy steroids and antihistamine therapy. Patient agrees with this plan will be discharged on follow-up primary care physician. - Vital Signs Vital signs: Temp Pulse Resp BP Pulse Ox 97.8 F 85 20 145/89 H 98 10/10/18 08:59 10/10/18 08:59 10/10/18 08:59 10/10/18 08:59 10/10/18 08:59 Discharge - Discharge Clinical Impression: URI with cough and congestion, Nausea and vomiting Condition: Good Disposition: HOME, SELF-CARE Instructions: Upper Respiratory Illness ([facility]), Viral Syndrome ([facility]), Vomiting ([facility]) Additional Instructions: Your symptoms are likely due to a virus. However, it is important that you continue to monitor for any concerning symptoms including inability to tolerate oral fluids, less than 2 urinations in a 24 hour period, and lethargy Please continue to offer oral solutions such as Pedialyte, water, gatorade. It is okay if you do not want to eat over the next several days but it is important that they continue to drink fluids. You may also provide a medication such as ibuprofen (Motrin) or acetaminophen (Tylenol) per box instructions for fever. Please also follow-up with your doctor in the next several days. Please take the medications given to you as prescribed. Prescriptions: Ondansetron [Zofran Odt 4 mg Tablet] 1 - 2 tab PO Q4H PRN #30 tab.rapdis PRN Reason: For Nausea/Vomiting Prednisone [Deltasone 20 mg Tablet] 3 tab PO DAILY 5 Days tablet Referrals: AURELIANO CORRALES MD [NO LOCAL MD] - Follow up as needed
== END 2018-10-10 09:20 | disposition home or self-care (01) ==
LOC: ER 23:27
DX: J06.9 Acute upper respiratory infection, unspecified (principal); R09.81 Nasal congestion; R11.2 Nausea with vomiting, unspecified; F17.200 Nicotine dependence, unspecified, uncomplicated; I10 Essential (primary) hypertension; Z91.030 Bee allergy status
CPT/HCPCS: 94640; 99283; 71046; S0119; J7512; J3490; J7620

== ENCOUNTER 2018-10-10 21:22 | Emergency (ER) | payer MEDICAID ==
[2018-10-10 22:22] LABS: ABSOLUTE BASOPHILS # (AUTO) 0.1 10^3/uL (0.0-0.2); ABSOLUTE LYMPHOCYTES (AUTO) 1.8 10^3/uL (0.5-4.7); ABSOLUTE MONOCYTES (AUTO) 0.4 10^3/uL (0.1-1.4); ABSOLUTE NEUT (AUTO) 5.9 10^3/uL (1.7-8.2); BASOPHILS % (AUTO) 0.7 % (0-2); EOSINOPHILS % (AUTO) 0.1 % (0-6); HEMOGLOBIN 16.3 g/dL (13.5-17.0); LYMPHOCYTES % (AUTO) 22.3 % (13-45); MEAN CORPUSCULAR HEMOGLOBIN 31.2 pg (27.0-33.4); MEAN CORPUSCULAR VOLUME 92 fl (80-97); MONOCYTES % (AUTO) 4.8 % (3-13); PLATELET COUNT 412 10^3/uL (150-450); RED BLOOD COUNT 5.23 10^6/uL (4.35-5.55); RED CELL DISTRIBUTION WIDTH 14.2 % (11.5-14.0); SEGMENTED NEUTROPHILS % (AUTO) 72.1 % (42-78); TOTAL CELLS COUNTED % (AUTO) 100 %; WHITE BLOOD COUNT 8.2 10^3/uL (4.0-10.5)
--- NOTE | 2018-10-10 22:24 | ER Document Report ---
Addendum entered and electronically signed by CHARITY THOMAS LPC 10/11/18 17:58: Discharge - Discharge Clinical Impression: Suicidal ideations Condition: Stable Disposition: HOME, SELF-CARE Additional Instructions: You have been evaluated buy both medical and behavioral health providers while in the emergency department. You have been cleared from both acute medical and psychiatric services. DEPRESSION: Your evaluation reveals that you have mental depression. While symptoms may be vague, they often include disturbance of sleep, fatigue, loss of appetite, and general loss of interest in life. While depression may be a side effect of drugs, or a reaction to a major change in your life, many cases have no known ca use. If depression is acute, and related to a major loss in your life, you can expect it to clear completely with time. If you have been depressed a long time, are prone to repeated bouts of depression or low mood, or have been thinking of suicide, get help. Depression can be treated with anti-depressant medication and counselling. Long-term depression will often take a few weeks to clear, even with appropriate medication. Follow-up care is important. SUICIDAL IDEATION: Suicidal ideation is a common medical term for thoughts about suicide, which may be as detailed as a formulated plan, without the suicidal act itself. Although most people who undergo suicidal ideation do not commit suicide, some go on to make suicide attempts. The range of suicidal ideation varies greatly from fleeting to detailed planning, role playing, and unsuccessful attempts. While thoughts about suicide are common, most people do not carry out serious actions to commit suicide. Based upon your evaluation and discussion with you, we do not believe you are currently at risk to act upon your thoughts of suicide. You have agreed to return to the Emergency Department, at any time, if you feel inclined to act upon your suicidal thoughts. Cocaine Abuse: Cocaine causes many dangerous medical problems. Problems can occur even with "usual" amounts. Cocaine affects judgement, creating a sense of invulnerability. Cocaine users often make bad decisions that seem "great" at the time. Most cocaine users eventually will be hurt by bad job performance, damaged personal relations, crime, and unsafe sexual practices. Toxic effects of cocaine can include seizures, hallucinations, delusions, high blood pressure, heart damage, or sudden . There's always the risk of a "bad batch." But heart attacks, brain hemorrhages, or cardiac arrest can occur unpredictably even with "normal" use. Injection of cocaine is risky for abscesses, endocarditis (heart infection), pneumonia, and AIDS. Withdrawal from cocaine often causes anxiety and drug cravings. Some users become paranoid and psychotic. Many treatment programs are available, but you must make the decision to quit. Medication can be prescribed to control the symptoms of cocaine toxicity (beta blockers or benzodiazepines). Withdrawal symptoms may require tranquilizers. FOLLOW-UP CARE: You have been provided the outpatient mental health resource sheet and instruct ed to call [facility] ([phone] number at the top of the page) for case management and linkage. [facility] is making a referral to the [facility]. you have also been provided with the [facility] resource Packet. If you experience worsening or a significant change in your symptoms, notify the physician immediately, utilize mobile crisis or return to the Emergency Department at any time for re-evaluation. Referrals: [facility] [Outside] - Follow up as needed Original Note: ED Psych Disorder / Suicide - General TRAVEL OUTSIDE OF THE [place] IN LAST 30 DAYS: No <ISAEL RAVI - Last Filed: 10/11/18 07:31> <CHARITY THOMAS - Last Filed: 10/11/18 17:54> <GAMALIEL ALBARRAN - Last Filed: 10/11/18 17:59> - General Chief Complaint: Psych Problem Stated Complaint: PSYCH Time Seen by Provider: 10/10/18 21:53 Primary Care Provider: [facility] [Outside] - Follow up as needed Notes: Patient is a 33-year-old male presents to the emergency department for suicidal ideations. Patient was seen in the emergency department last night for generalized cough, congestion, URI symptoms. Patient has been sleeping in the waiting room all day. Upon security asking the patient to leave he states he wants to walk into traffic. Upon questioning the patient he states he has a history of paranoid schizophrenia. States he is supposed to be on medications and feels as though "people are out to get me." When I asked the patient if he wants to hurt himself he states "yeah if you gave me some bleach right now I would drink it." Patient is denying any other complaints. Patient was given a prescription for steroids and Zofran at his visit to the emergency department this morning. Patient is denying any respiratory distress or nausea at this time. (ISAEL RAVI) - Related Data Allergies/Adverse Reactions: No Known Drug Allergies Allergy (Verified 10/11/18 11:31) bees Allergy (Severe, Uncoded 10/11/18 11:31) Past Medical History - General Information source: Patient - Social History Smoking Status: Unknown if Ever Smoked Family History: Arthritis, CAD - grandfather, DM - mother and father, Hyperlipidemia, Hypertension - grandfather father, Malignancy - Past Medical History Cardiac Medical History: Reports: Hx Hypertension Denies: Hx Coronary Artery Disease, Hx Heart Attack Pulmonary Medical History: Reports: Hx Asthma Denies: Hx Bronchitis, Hx COPD, Hx Pneumonia Neurological Medical History: Denies: Hx Cerebrovascular Accident, Hx Seizures Renal/ Medical History: Denies: Hx Peritoneal Dialysis GI Medical History: Reports: Hx Gastroesophageal Reflux Disease Musculoskeletal Medical History: Denies Hx Arthritis, Reports Hx Musculoskeletal Deformity, Reports Hx Musculoskeletal Trauma Psychiatric Medical History: Reports: Hx Anxiety - Panic attacks, stress Traumatic Medical History: Reports: Hx Fractures - Right fourth metacarpal Past Surgical History: Reports: Hx Orthopedic Surgery - Tendon repair and right ankle; right hand right fourth metacarpal fracture - Immunizations Immunizations up to date: Yes Hx Diphtheria, Pertussis, Tetanus Vaccination: Yes - 2013 <ISAEL RAVI - Last Filed: 10/11/18 07:31> Review of Systems - Review of Systems Constitutional: No symptoms reported EENT: No symptoms reported Cardiovascular: No symptoms reported Respiratory: No symptoms reported Gastrointestinal: No symptoms reported Genitourinary: No symptoms reported Male Genitourinary: No symptoms reported Musculoskeletal: No symptoms reported Skin: No symptoms reported Hematologic/Lymphatic: No symptoms reported Neurological/Psychological: See HPI <ISAEL RAVI - Last Filed: 10/11/18 07:31> Physical Exam <ISAEL RAVI - Last Filed: 10/11/18 07:31> - Vital signs Vitals: Temp Pulse Resp BP Pulse Ox 98.5 F 86 18 166/115 H 99 10/10/18 21:31 10/10/18 21:31 10/10/18 21:31 10/10/18 21:31 10/10/18 21:31 - Notes Notes: GENERAL: Alert, interacts well. No acute distress. HEAD: Normocephalic, atraumatic. EYES: Pupils equal, round, and reactive to light. Extraocular movements intact. ENT: Oral mucosa moist, tongue midline. NECK: Full range of motion. Supple. Trachea midline. LUNGS: Clear to auscultation bilaterally, no wheezes, rales, or rhonchi. No re spiratory distress. HEART: Regular rate and rhythm. No murmur ABDOMEN: Soft, non-tender. Non-distended. Bowel sounds present in all 4 quadrants. EXTREMITIES: Moves all 4 extremities spontaneously. No edema, normal radial and dorsalis pedis pulses bilaterally. No cyanosis. BACK: no cervical, thoracic, lumbar midline tenderness. No saddle anesthesia, normal distal neurovascular exam. NEUROLOGICAL: Alert and oriented x3. Normal speech. cranial nerves II through XII grossly intact PSYCH: Flat affect, depressed mood. SKIN: Warm, dry, normal turgor. No rashes or lesions noted. (ISAEL RAVI) Course - Laboratory Result Diagrams: 10/10/18 22:15 10/10/18 22:15 <ISAEL RAVI - Last Filed: 10/11/18 07:31> - Laboratory Result Diagrams: 10/10/18 22:15 10/10/18 22:15 <GAMALIEL ALBARRAN - Last Filed: 10/11/18 17:59> - Re-evaluation Re-evalutation: 10/11/18 07:31 IVC paperwork has been filled out. Patient is currently medically cleared for psychiatric evaluation. (ISAEL RAVI) - Vital Signs Vital signs: Temp Pulse Resp BP Pulse Ox 98.1 F 85 18 132/70 H 100 10/11/18 17:00 10/11/18 17:00 10/11/18 17:00 10/11/18 17:00 10/11/18 17:00 - Laboratory Laboratory results interpreted by tx: 10/10/18 10/10/18 10/11/18 22:15 22:15 06:52 RDW 14.2 H Glucose 140 H ALT 18 L Urine Protein 30 H Urine Ketones 20 H Urine Bilirubin SMALL H Urine Urobilinogen 2.0 H Ur Leukocyte Esterase SMALL H Salicylates < 1.0 L Acetaminophen < 10 L Discharge <ISAEL RAVI - Last Filed: 10/11/18 07:31> <CHARITY THOMAS - Last Filed: 10/11/18 17:54> <GAMALIEL ALBARRAN Mel - Last Filed: 10/11/18 17:59> - Discharge Clinical Impression: Suicidal ideations Condition: Stable Disposition: HOME, SELF-CARE Additional Instructions: You have been evaluated buy both medical and behavioral health providers while in the emergency department. You have been cleared from both acute medical and psychiatric services. DEPRESSION: Your evaluation reveals that you have mental depression. While symptoms may be vague, they often include disturbance of sleep, fatigue, loss of appetite, and general loss of interest in life. While depression may be a side effect of drugs, or a reaction to a major change in your life, many cases have no known cause. If depression is acute, and related to a major loss in your life, you can expect it to clear completely with time. If you have been depressed a long time, are prone to repeated bouts of depression or low mood, or have been thinking of suicide, get help. Depression can be treated with anti-depressant medication and counselling. Long-term depression will often take a few weeks to clear, even with appropriate medication. Follow-up care is important. SUICIDAL IDEATION: Suicidal ideation is a common medical term for thoughts about suicide, which may be as detailed as a formulated plan, without the suicidal act itself. Although most people who undergo suicidal ideation do not commit suicide, some go on to make suicide attempts. The range of suicidal ideation varies greatly from fleeting to detailed planning, role playing, and unsuccessful attempts. While thoughts about suicide are common, most people do not carry out serious actions to commit suicide. Based upon your evaluation and discussion with you, we do not believe you are currently at risk to act upon your thoughts of suicide. You have agreed to return to the Emergency Department, at any time, if you feel inclined to act upon your suicidal thoughts. Cocaine Abuse: Cocaine causes many dangerous medical problems. Problems can occur even with "usual" amounts. Cocaine affects judgement, creating a sense of invulnerability. Cocaine users often make bad decisions that seem "great" at the time. Most cocaine users eventually will be hurt by bad job performance, damaged personal relations, crime, and unsafe sexual practices. Toxic effects of cocaine can include seizures, hallucinations, delusions, high blood pressure, heart damage, or sudden . There's always the risk of a "bad batch." But heart attacks, brain hemorrhages, or cardiac arrest can occur unpredictably even with "normal" use. Injection of cocaine is risky for abscesses, endocarditis (heart infection), pneumonia, and AIDS. Withdrawal from cocaine often causes anxiety and drug cravings. Some users become paranoid and psychotic. Many treatment programs are available, but you must make the decision to quit. Medication can be prescribed to control the symptoms of cocaine toxicity (beta blockers or benzodiazepines). Withdrawal symptoms may require tranq uilizers. FOLLOW-UP CARE: You have been provided the outpatient mental health resource sheet and instructed to call [facility] Mobile [facility] ([phone] number at the top of the page) for case management and linkage. [facility] is making a referral to the [facility]. you have also been provided with the [facility] resource Packet. If you experience worsening or a significant change in your symptoms, notify the physi melinda immediately, utilize mobile crisis or return to the Emergency Department at any time for re-evaluation. Referrals: [facility] [Outside] - Follow up as needed
[2018-10-10 22:39] LABS: ALANINE AMINOTRANSFERASE 18 U/L (21-72); ALBUMIN 4.1 g/dL (3.5-5.0); ALKALINE PHOSPHATASE 46 U/L (38-126); ANION GAP 10 (5-19); ASPARTATE AMINO TRANSFERASE 21 U/L (17-59); BILIRUBIN,DIRECT 0.1 mg/dL (0.0-0.4); BILIRUBIN,TOTAL 0.3 mg/dL (0.2-1.3); BLOOD UREA NITROGEN 8 mg/dL (7-20); CALCIUM 9.9 mg/dL (8.4-10.2); CARBON DIOXIDE 26 mmol/L (22-30); CHLORIDE 103 mmol/L (98-107); GLUCOSE 140 mg/dL (75-110); POTASSIUM 4.6 mmol/L (3.6-5.0); SODIUM 138.7 mmol/L (137-145); TOTAL PROTEIN 7.2 g/dL (6.3-8.2)
[2018-10-10 22:41] LABS: ACETAMINOPHEN < 10 ug/mL (10-30); ALCOHOL < 10 mg/dL (NONE DETECTED); SALICYLATE < 1.0 mg/dL (2.0-20.0)
[2018-10-11] MEDS ORDERED: ACETAMINOPHEN 325 MG TABLET PO ONE (00:32)
[2018-10-11 07:18] LABS: APPEARANCE,URINE SLIGHTLY-CLOUDY; BILIRUBIN,URINE SMALL (NEGATIVE); COLOR,URINE AMBER; GLUCOSE, URINE NEGATIVE (NEGATIVE); KETONES,URINE 20 mg/dL (NEGATIVE); LEUKOCYTE ESTERASE,URINE SMALL (NEGATIVE); NITRITE,URINE NEGATIVE (NEGATIVE); PROTEIN,URINE 30 mg/dL (NEGATIVE); URINE SPECIFIC GRAVITY 1.033
[2018-10-11 07:30] LABS: URINE BARBITURATES SCREEN NEGATIVE; URINE BENZODIAZEPINES SCREEN NEGATIVE; URINE COCAINE SCREEN UNCONFIRMED POSITIVE; URINE MARIJUANA (THC) SCREEN NEGATIVE; URINE METHADONE SCREEN NEGATIVE; URINE PHENCYCLIDINE SCREEN NEGATIVE
[2018-10-11] MEDS ORDERED: ACETAMINOPHEN 325 MG TABLET PO PRN (09:43)
--- NOTE | 2018-10-11 11:08 | ER Document Report ---
Doctor's Note Notes: 10/11/18 11:02 Patient seen and evaluated by myself. He has poor eye contact and is not answering questions. He did test positive for cocaine on drug screen yesterday but is denying any recent cocaine use. He does not seem to be having any active hallucinations. He states "this really does not want me here". And when I asked if he wanted to be in this world he states "I do not think so". He does not have an active plan for suicide. He does state that he does not feel safe leaving and will not elaborate on why. Patient is homeless and has secondary gain from staying in the emergency room so it is difficult to ascertain whether he is actively suicidal or malingering however he does have risk factors of committing suicide include homelessness and substance abuse. Final disposition is pending further conversations with psych however at this point I recommend at least monitoring the patient for another 24 hours versus inpatient admission for suicidality.
[2018-10-11 17:51] VITALS: BP 132/70
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
--- NOTE | 2018-10-11 21:22 | EKG REPORT ---
SEVERITY:- ABNORMAL ECG - SINUS RHYTHM LEFT POSTERIOR FASCICULAR BLOCK BORDERLINE R WAVE PROGRESSION, ANTERIOR LEADS : Confirmed by: Vandana Ramos MD 11-Oct-2018 21:22:18
== END 2018-10-11 18:21 | disposition home or self-care (01) ==
LOC: ER 21:22
DX: R45.851 Suicidal ideations (principal); R05 Cough; R68.89 Other general symptoms and signs; F20.9 Schizophrenia, unspecified; F14.99 Cocaine use, unspecified with unspecified cocaine-induced disorder; Z59.0 Homelessness; F29 Unspecified psychosis not due to a substance or known physiological condition; I10 Essential (primary) hypertension
CPT/HCPCS: 93005; 99285; 36415; 87086; 80307 ×4; 85025; 80053; 81001; 93010; J3490

== ENCOUNTER 2019-05-15 10:14 | Emergency (ER) | payer SELFPAY ==
[2019-05-15] MEDS ORDERED: DIPH/PERTUSS(ACELL)/TETANUS VAC/PF 0.5 ML SYR (>=10YO) IM ONE (11:01)
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
[2019-05-15 18:28] VITALS: BP 146/85
== END 2019-05-15 18:27 | disposition short-term general hospital (02) ==
LOC: ER 10:14
DX: S82.241A Displaced spiral fracture of shaft of right tibia, initial encounter for closed fracture (principal); S31.109A Unspecified open wound of abdominal wall, unspecified quadrant without penetration into peritoneal cavity, initial encounter; S31.829A Unspecified open wound of left buttock, initial encounter; S91.302A Unspecified open wound, left foot, initial encounter; S81.802A Unspecified open wound, left lower leg, initial encounter; S31.30XA Unspecified open wound of scrotum and testes, initial encounter; X95.9XXA Assault by unspecified firearm discharge, initial encounter; Z23 Encounter for immunization; Z88.6 Allergy status to analgesic agent; I10 Essential (primary) hypertension
CPT/HCPCS: 71045; 74018; 90471; 90715; 99285

== ENCOUNTER 2019-05-27 03:57 | Emergency (ER) | payer SELFPAY ==
[2019-05-27] MEDS ORDERED: OXYCODONE-ACETAMINOPHEN 5-325 MG TABLET PO ONE (04:08)
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
[2019-05-27 06:50] VITALS: BP 161/82
== END 2019-05-27 06:35 | disposition home or self-care (01) ==
LOC: ER 03:57
DX: S82.301E Unspecified fracture of lower end of right tibia, subsequent encounter for open fracture type I or II with routine healing (principal); W34.00XD Accidental discharge from unspecified firearms or gun, subsequent encounter; Z98.890 Other specified postprocedural states; I10 Essential (primary) hypertension; J45.909 Unspecified asthma, uncomplicated; Z79.899 Other long term (current) drug therapy
CPT/HCPCS: 99283

== ENCOUNTER 2019-06-08 16:20 | Emergency (ER) | payer SELFPAY ==
[2019-06-08 16:25] VITALS: BP 170/94
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
== END 2019-06-08 17:18 | disposition home or self-care (01) ==
LOC: ER 16:20
DX: S81.831D Puncture wound without foreign body, right lower leg, subsequent encounter (principal); W34.00XD Accidental discharge from unspecified firearms or gun, subsequent encounter; I10 Essential (primary) hypertension; J45.909 Unspecified asthma, uncomplicated

== ENCOUNTER 2019-08-23 19:35 | Emergency (ER) | payer MEDICAID ==
[2019-08-23] MEDS ORDERED: ONDANSETRON 4 MG TAB.RAPDIS PO ONE (20:42)
--- NOTE | 2019-08-23 20:46 | ER Document Report ---
ED Medical Screen (RME) - General Chief Complaint: Nausea/Vomiting/Diarrhea Stated Complaint: VOMITING/COUGHING Time Seen by Provider: 08/23/19 20:38 Notes: HPI: 34-year-old male presenting to the emergency department complaining of vomiting and diarrhea. No fever. Difficult to obtain history from the patient. He denies abdominal pain I have greeted and performed a rapid initial assessment of this patient. A comprehensive ED assessment and evaluation of the patient, analysis of test results and completion of the medical decision making process will be conducted by additional ED providers PHYSICAL EXAMINATION: GENERAL: Well-appearing, well-nourished and in mild acute distress. HEAD: Atraumatic, normocephalic. EYES: sclera anicteric, conjunctiva are normal. ENT: Moist mucous membranes. NECK: Normal range of motion LUNGS: Normal work of breathing HEART: 2+ radial pulses bilaterally ABD: limited by positioning for exam in triage. No pain on palpation EXTREMITIES: no pitting or edema. No cyanosis. NEUROLOGICAL: No focal neurological deficits. Moves all extremities spontaneously and on command. PSYCH: Patient with a very defensive affect, began crying after examination and history SKIN: Warm, Dry, normal turgor, no rashes or lesions noted. I approach the patient in the room to greet him and patient became very defensive asking me to step back several times. I did explain to the patient that in the emergency department we normally would introduce ourselves which I had done and speak with the patient and then examined them. I did explain that we would have to touch the patient in order to examine him and patient agrees to this. Immediately after he still seemed somewhat frightened and scared but would not verbally relate why he was acting this way or what he was feeling. Patient did allow me to examine him but did seem somewhat fearful still TRAVEL OUTSIDE OF THE [place] IN LAST 30 DAYS: No - Related Data Allergies/Adverse Reactions: hydrocodone [From Vicodin] Allergy (Verified 08/23/19 20:37) No Known Drug Allergies Allergy (Verified 08/23/19 20:37) bees Allergy (Severe, Uncoded 08/23/19 20:37) Past Medical History - Social History Family history: Reviewed & Not Pertinent - Past Medical History Cardiac Medical History: Reports: Hx Hypertension Denies: Hx Coronary Artery Disease, Hx Heart Attack Pulmonary Medical History: Reports: Hx Asthma Denies: Hx Bronchitis, Hx COPD, Hx Pneumonia Neurological Medical History: Denies: Hx Cerebrovascular Accident, Hx Seizures Renal/ Medical History: Denies: Hx Peritoneal Dialysis GI Medical History: Reports: Hx Gastroesophageal Reflux Disease Musculoskeltal Medical History: Denies Hx Arthritis, Reports Hx Musculoskeletal Deformity, Reports Hx Musculoskeletal Trauma Psychiatric Medical History: Reports: Hx Anxiety - Panic attacks, stress Traumatic Medical History: Reports: Hx Fractures - Right fourth metacarpal Past Surgical History: Reports: Hx Orthopedic Surgery - Tendon repair and right ankle; right hand right fourth metacarpal fracture - Immunizations Immunizations up to date: Yes Hx Diphtheria, Pertussis, Tetanus Vaccination: Yes - 2013 Physical Exam - Vital signs Vitals: Temp Pulse Resp BP Pulse Ox 98.8 F 89 16 184/92 H 96 08/23/19 19:55 08/23/19 19:55 08/23/19 19:55 08/23/19 19:55 08/23/19 19:55 Course - Vital Signs Vital signs: Temp Pulse Resp BP Pulse Ox 98.8 F 89 16 184/92 H 96 08/23/19 19:55 08/23/19 19:55 08/23/19 19:55 08/23/19 19:55 08/23/19 19:55
[2019-08-24] MEDS ORDERED: HALOPERIDOL 5 MG TABLET PO ONE (00:46)
--- NOTE | 2019-08-24 00:52 | ER Document Report ---
ED General - General Chief Complaint: Nausea/Vomiting/Diarrhea Stated Complaint: VOMITING/COUGHING Time Seen by Provider: 08/23/19 20:38 Notes: Patient is a 34-year-old male that comes to the emergency department for chief complaint of nausea, vomiting, diarrhea. He states he started getting sick today. He states he thinks he was "around some sick kids". He denies fever, shortness of breath or cough, abdominal pain, chest pain. He also states that he thinks that "some black kyleigh followed me here". He states that he is "scared what they may do", he states "I do not feel safe". I asked him if there is something wrong at home, I asked him if he knows this person, he states that he does not know who they are and he states "I never feel safe". Patient would not give me any more details about this. Patient denies surgeries, daily me dications, or any diagnosed medical history. TRAVEL OUTSIDE OF THE [place] IN LAST 30 DAYS: No - Related Data Allergies/Adverse Reactions: hydrocodone [From Vicodin] Allergy (Verified 08/23/19 20:37) No Known Drug Allergies Allergy (Verified 08/23/19 20:37) bees Allergy (Severe, Uncoded 08/23/19 20:37) Past Medical History - General Information source: Patient - Social History Smoking Status: Current Every Day Smoker Drug Abuse: None Lives with: Alone Family History: Arthritis, CAD - grandfather, DM - mother and father, Hyperlipidemia, Hypertension - grandfather father, Malignancy Patient has suicidal ideation: No Patient has homicidal ideation: No - Past Medical History Cardiac Medical History: Reports: Hx Hypertension Denies: Hx Coronary Artery Disease, Hx Heart Attack Pulmonary Medical History: Reports: Hx Asthma Denies: Hx Bronchitis, Hx COPD, Hx Pneumonia Neurological Medical History: Denies: Hx Cerebrovascular Accident, Hx Seizures Renal/ Medical History: Denies: Hx Peritoneal Dialysis GI Medical History: Reports: Hx Gastroesophageal Reflux Disease Musculoskeletal Medical History: Denies Hx Arthritis, Reports Hx Musculoskeletal Deformity, Reports Hx Musculoskeletal Trauma Psychiatric Medical History: Reports: Hx Anxiety - Panic attacks, stress Traumatic Medical History: Reports: Hx Fractures - Right fourth metacarpal Past Surgical History: Reports: Hx Orthopedic Surgery - Tendon repair and right ankle; right hand right fourth metacarpal fracture - Immunizations Immunizations up to date: Yes Hx Diphtheria, Pertussis, Tetanus Vaccination: Yes - 2013 Review of Systems - Review of Systems Constitutional: No symptoms reported EENT: No symptoms reported Cardiovascular: No symptoms reported Respiratory: No symptoms reported Gastrointestinal: See HPI Genitourinary: No symptoms reported Male Genitourinary: No symptoms reported Musculoskeletal: No symptoms reported Skin: No symptoms reported Hematologic/Lymphatic: No symptoms reported Neurological/Psychological: See HPI Physical Exam - Vital signs Vitals: Temp Pulse Resp BP Pulse Ox 98.8 F 89 16 184/92 H 96 08/23/19 19:55 08/23/19 19:55 08/23/19 19:55 08/23/19 19:55 08/23/19 19:55 - Notes Notes: GENERAL: Sleeping but easily aroused, anxious but not in distress HEAD: Normocephalic, atraumatic. EYES: Pupils equal, round, and reactive to light. Extraocular movements intact. ENT: Oral mucosa moist, tongue midline. Oropharynx unremarkable. Airway patent. LUNGS: Clear to auscultation bilaterally, no wheezes, rales, or rhonchi. No respiratory distress. HEART: Regular rate and rhythm. No murmur ABDOMEN: Soft, non-tender. Non-distended. Bowel sounds present in all 4 quadrants. GENITOURINARY: Deferred EXTREMITIES: Moves all 4 extremities spontaneously. No edema, normal radial and dorsalis pedis pulses bilaterally. No cyanosis. BACK: no cervical, thoracic, lumbar midline tenderness. No saddle anesthesia, normal distal neurovascular exam. Moves all extremities in full range of motion. NEUROLOGICAL: Alert and oriented x3. Normal speech. Cranial nerves II through XII grossly intact. PSYCH: Patient is easily startled, glances around the room frantically at times. Poor eye contact. Difficult historian. SKIN: Warm, dry, normal turgor. No rashes or lesions noted. Course - Re-evaluation Re-evalutation: Per nursing staff patient was crying in the triage area before coming back to [facility] room. Patient became extremely startled and agitated when I woke him up in the room, however I did manage to calm him down. Patient did provide me with a history and allow me to examine him after this. His abdomen is soft and benign, his lungs are clear, he does not appear to be in distress other than his anxiety and bizarre behavior. He is expressing paranoia about someone coming after him but will not tell me more details about this, he states he does not feel safe. I did look and note that patient does have a history of paranoid schizophrenia and he has been seen here for this in the past. Patient states that he lives nearby and walked here himself. Work-up unremarkable including nonspecific CBC, chemistry, tox screen, negative influenza. Patient was given Haldol and afterwards we did obtain an EKG, patient was very shaky and restless, QTC was 571 but this was a very nonspecific EKG with a ton of artifact. Based on gross average just looking at the QT area this does not appear to be significantly prolonged. No overt ischemic findings. On evaluation patient continues to exhibit paranoid behavior, frequently peeking outside of his room. When we asked what is the matter he states he is "looking for the big black kyleigh who is coming for me". Patient did consent to le t us take his things to "keep them safe", he accepted haldol PO, he did not vomit. Patient is hypertensive but according to his history he has a history of hypertension, I am unsure what he used to take for this at this time, patient was also very anxious when this was taken, this will be routinely rechecked. He is denying headache or chest pain. He states he just wants to "get ship engineer the room". Patient has been cooperative and has not exhibited any threatening behavior. Consult has been placed for the mental health team to evaluate the patient in the morning, patient is medically cleared. Patient is here voluntarily. Patient has been discussed with Dr. Irizarry. - Vital Signs Vital signs: Temp Pulse Resp BP Pulse Ox 98.6 F 76 18 162/72 H 96 08/24/19 03:30 08/24/19 03:30 08/24/19 03:30 08/24/19 03:30 08/24/19 03:30 - Laboratory Result Diagrams: 08/24/19 01:17 08/24/19 01:17 Laboratory results interpreted by me: 08/24/19 08/24/19 01:17 01:17 RDW 15.2 H Chloride 109 H Anion Gap 2 L AST 16 L Total Protein 5.5 L Albumin 3.0 L Salicylates < 1.0 L Acetaminophen < 10 L Discharge - Discharge Clinical Impression: Paranoid schizophrenia, Elevated blood pressure reading Vomiting Qualifiers: Vomiting type: unspecified Vomiting Intractability: non-intractable Nausea presence: unspecified Qualified Code(s): R11.10 - Vomiting, unspecified Condition: Stable Disposition: PSYCH HOSP/UNIT
[2019-08-24 01:31] LABS: ABSOLUTE BASOPHILS # (AUTO) 0.1 10^3/uL (0.0-0.2); ABSOLUTE EOSINOPHILS # (AUTO) 0.2 10^3/uL (0.0-0.6); ABSOLUTE LYMPHOCYTES (AUTO) 3.1 10^3/uL (0.5-4.7); ABSOLUTE MONOCYTES (AUTO) 0.6 10^3/uL (0.1-1.4); ABSOLUTE NEUT (AUTO) 3.5 10^3/uL (1.7-8.2); BASOPHILS % (AUTO) 0.9 % (0-2); EOSINOPHILS % (AUTO) 2.3 % (0-6); HEMATOCRIT 43.1 % (37.9-51.0); HEMOGLOBIN 14.6 g/dL (13.5-17.0); LYMPHOCYTES % (AUTO) 41.7 % (13-45); MEAN CORPUSCULAR HEMOGLOBIN 31.3 pg (27.0-33.4); MEAN CORPUSCULAR HGB CONC 33.8 g/dL (32.0-36.0); MEAN CORPUSCULAR VOLUME 93 fl (80-97); PLATELET COUNT 288 10^3/uL (150-450); RED BLOOD COUNT 4.65 10^6/uL (4.35-5.55); RED CELL DISTRIBUTION WIDTH 15.2 % (11.5-14.0); SEGMENTED NEUTROPHILS % (AUTO) 47.1 % (42-78); TOTAL CELLS COUNTED % (AUTO) 100 %; WHITE BLOOD COUNT 7.4 10^3/uL (4.0-10.5)
[2019-08-24 01:43] LABS: A TYPE INFLUENZA AG NEGATIVE (NEGATIVE); B INFLUENZA AG NEGATIVE (NEGATIVE)
[2019-08-24 01:45] LABS: ALKALINE PHOSPHATASE 77 U/L (38-126); ASPARTATE AMINO TRANSFERASE 16 U/L (17-59); BILIRUBIN,TOTAL 0.2 mg/dL (0.2-1.3); BLOOD UREA NITROGEN 7 mg/dL (7-20); CALCIUM 8.4 mg/dL (8.4-10.2); GLUCOSE 88 mg/dL (75-110); POTASSIUM 4.4 mmol/L (3.6-5.0); TOTAL PROTEIN 5.5 g/dL (6.3-8.2)
[2019-08-24 01:49] LABS: CARBON DIOXIDE 29 mmol/L (22-30); CHLORIDE 109 mmol/L (98-107)
[2019-08-24 01:53] LABS: ACETAMINOPHEN < 10 ug/mL (10-30); ALCOHOL < 10 mg/dL (NONE DETECTED); ANION GAP 2 (5-19); SALICYLATE < 1.0 mg/dL (2.0-20.0)
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
[2019-08-24 14:18] LABS: APPEARANCE,URINE CLEAR; BILIRUBIN,URINE NEGATIVE (NEGATIVE); COLOR,URINE YELLOW; GLUCOSE, URINE NEGATIVE (NEGATIVE); KETONES,URINE NEGATIVE (NEGATIVE); LEUKOCYTE ESTERASE,URINE NEGATIVE (NEGATIVE); NITRITE,URINE NEGATIVE (NEGATIVE); PROTEIN,URINE NEGATIVE (NEGATIVE); UROBILINOGEN,URINE NEGATIVE mg/dL (<2.0)
[2019-08-24 14:29] LABS: URINE AMPHETAMINES SCREEN NEGATIVE; URINE BARBITURATES SCREEN NEGATIVE; URINE BENZODIAZEPINES SCREEN NEGATIVE; URINE MARIJUANA (THC) SCREEN NEGATIVE; URINE METHADONE SCREEN NEGATIVE; URINE PHENCYCLIDINE SCREEN NEGATIVE
[2019-08-24 14:33] LABS: URINE COCAINE SCREEN UNCONFIRMED POSITIVE
--- NOTE | 2019-08-24 14:50 | EKG REPORT ---
SEVERITY:- BORDERLINE ECG - SINUS RHYTHM BORDERLINE R WAVE PROGRESSION, ANTERIOR LEADS : Confirmed by: Vandana Ramos MD 24-Aug-2019 14:49:25
--- NOTE | 2019-08-24 14:50 | EKG REPORT ---
SEVERITY:- ABNORMAL ECG - ACCELERATED JUNCTIONAL RHYTHM RUN OF VENTRICULAR PREMATURE COMPLEXES RVH WITH SECONDARY REPOLARIZATION ABNORMALITY NONSPECIFIC T ABNORMALITIES, LATERAL LEADS PROLONGED QT INTERVAL : Confirmed by: Vandana Ramos MD 24-Aug-2019 14:49:27
--- NOTE | 2019-08-24 16:00 | ER Document Report ---
Doctor's Note Notes: 08/24/19 15:58 Progress note: Patient is a 34-year-old -[place] male who was seen here last night for nausea vomiting and diarrhea and upset stomach who was also noted to be markedly paranoid and was placed under IVC status. Upon my reevaluation today, the patient is resting comfortably in the bed, sleeping. When I wake him up he is jumpy but easily arousable. He seems very anxious and suspicious, very paranoid. He ambulated to the bathroom utilizing his cane and was very wary of people walking by, often watching them into they were far out of site before he would move on. Mental health has evaluated him and advised medications of Haldol 5 mg p.o. twice daily and Cogentin 1 mg p.o. daily. Patient is amenable to this plan. He is currently still under IVC status. They are pending placement for the patient. He will continue to be monitored. He does report that his gastrointestinal symptoms have subsided. He denies any medical complaints today. Vital signs within normal limits. Heart: Regular rate and rhythm, lungs: Clear to auscultation bilaterally. Patient remained stable at this time we will continue to monitor.
[2019-08-24] MEDS: HALOPERIDOL 5 MG TABLET PO SCH (17:02)
[2019-08-24] MEDS: BENZTROPINE MESYLATE 1 MG TABLET PO SCH (17:02)
[2019-08-25] MEDS: BENZTROPINE MESYLATE 1 MG TABLET PO SCH (10:00)
[2019-08-25] MEDS: HALOPERIDOL 5 MG TABLET PO SCH (10:00)
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
[2019-08-25 11:56] VITALS: BP 128/84
== END 2019-08-25 11:54 | disposition home or self-care (01) ==
LOC: ER 19:35
DX: R11.2 Nausea with vomiting, unspecified (principal); F20.0 Paranoid schizophrenia; R19.7 Diarrhea, unspecified; I10 Essential (primary) hypertension; J45.909 Unspecified asthma, uncomplicated; F17.200 Nicotine dependence, unspecified, uncomplicated; Z91.030 Bee allergy status
CPT/HCPCS: 36415; 80307 ×4; 83690; 85025; 80053; 81001; 87804; J3490 ×2; 93005; 93010; 99285

== ENCOUNTER 2020-01-01 02:30 | Emergency (ER) | payer MEDICAID ==
[2020-01-01] MEDS ORDERED: AZITHROMYCIN 250 MG TABLET PO ONE (03:31)
[2020-01-01] MEDS ORDERED: CEFTRIAXONE INJ 250 MG VIAL IM ONE (03:31)
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
[2020-01-01] MEDS ORDERED: LIDOCAINE 1% INJ-PF (10 MG/ML) 30 ML SDV ONE (04:02)
[2020-01-01] MEDS ORDERED: LISINOPRIL 10 MG TABLET PO ONE (04:12)
[2020-01-01] MEDS ORDERED: HYDROCHLOROTHIAZIDE 25 MG TABLET PO ONE (04:12)
[2020-01-01 05:30] VITALS: BP 155/90
== END 2020-01-01 04:17 | disposition home or self-care (01) ==
LOC: ER 02:30
DX: Z20.2 Contact with and (suspected) exposure to infections with a predominantly sexual mode of transmission (principal); I10 Essential (primary) hypertension; F17.200 Nicotine dependence, unspecified, uncomplicated; J45.909 Unspecified asthma, uncomplicated
CPT/HCPCS: 99283; 96372; Q0144; J3490 ×3; J0696

== ENCOUNTER 2020-06-07 16:00 | Emergency (ER) | payer MEDICAID ==
[2020-06-07] MEDS ORDERED: ACETAMINOPHEN 325 MG TABLET PO ONE (16:14)
--- NOTE | 2020-06-07 16:16 | ER Document Report ---
ED Medical Screen (RME) - General Chief Complaint: Flu Symptoms Stated Complaint: CONGESTION Time Seen by Provider: 06/07/20 16:11 Notes: Patient is a 35-year-old male presents emergency department with a chief complaint of, "I feel like I have the flu." Patient states that he has had a symptoms for the past 3 days. States that he has a cough and congestion. States that he feels congested in his chest and nose. Patient states that he wo uld like to be tested for Covid. Exam: Temperature 100.2. I have greeted and performed a rapid initial assessment of this patient. A comprehensive ED assessment and evaluation of the patient, analysis of test results and completion of medical decision making process will be conducted by an additional ED providers. TRAVEL OUTSIDE OF THE [place] IN LAST 30 DAYS: No - Related Data Allergies/Adverse Reactions: hydrocodone [From Vicodin] Allergy (Verified 06/07/20 16:10) bees Allergy (Severe, Uncoded 06/07/20 16:10) Past Medical History - Social History Family history: Reviewed & Not Pertinent - Past Medical History Cardiac Medical History: Reports: Hx Hypertension Denies: Hx Coronary Artery Disease, Hx Heart Attack Pulmonary Medical History: Reports: Hx Asthma Denies: Hx Bronchitis, Hx COPD, Hx Pneumonia Neurological Medical History: Denies: Hx Cerebrovascular Accident, Hx Seizures Renal/ Medical History: Denies: Hx Peritoneal Dialysis GI Medical History: Reports: Hx Gastroesophageal Reflux Disease Musculoskeltal Medical History: Denies Hx Arthritis, Reports Hx Musculoskeletal Deformity, Reports Hx Musculoskeletal Trauma Psychiatric Medical History: Reports: Hx Anxiety - Panic attacks, stress Traumatic Medical History: Reports: Hx Fractures - Right fourth metacarpal Past Surgical History: Reports: Hx Orthopedic Surgery - Tendon repair and right ankle; right hand right fourth metacarpal fracture - Immunizations Immunizations up to date: Yes Hx Diphtheria, Pertussis, Tetanus Vaccination: Yes - 2013 Physical Exam - Vital signs Vitals: Temp Pulse Resp BP Pulse Ox 100.2 F 108 H 20 182/62 H 100 06/07/20 16:05 06/07/20 16:05 06/07/20 16:05 06/07/20 16:05 06/07/20 16:05 Course - Vital Signs Vital signs: Temp Pulse Resp BP Pulse Ox 100.2 F 108 H 20 182/62 H 100 06/07/20 16:05 06/07/20 16:05 06/07/20 16:05 06/07/20 16:05 06/07/20 16:05
--- NOTE | 2020-06-07 17:01 | ER Document Report ---
ED Flu Like - General Chief Complaint: Flu Symptoms Stated Complaint: CONGESTION Time Seen by Provider: 06/07/20 16:11 Mode of Arrival: Ambulatory Information source: Patient Notes: 35-year-old male past medical history significant for hypertension presents to the emergency room complaining of fevers of 101, general body aches, sore throat and 1-2 episodes of diarrhea daily. Symptoms started 2 days ago. No medications for symptoms. No ill contacts. No bad food. No recent antibiotics. No recent travel. No COVID-19 exposure. Decreased appetite but is tolerating p.o. fluids. TRAVEL OUTSIDE OF THE [place] IN LAST 30 DAYS: No - Related Data Allergies/Adverse Reactions: hydrocodone [From Vicodin] Allergy (Verified 06/07/20 16:10) bees Allergy (Severe, Uncoded 06/07/20 16:10) Past Medical History - General Information source: Patient - Social History Smoking Status: Former Smoker Frequency of alcohol use: None Drug Abuse: None Family History: Arthritis, CAD - grandfather, DM - mother and father, Hyperlipidemia, Hypertension - grandfather father, Malignancy - Past Medical History Cardiac Medical History: Reports: Hx Hypertension Denies: Hx Coronary Artery Disease, Hx Heart Attack Pulmonary Medical History: Reports: Hx Asthma Denies: Hx Bronchitis, Hx COPD, Hx Pneumonia Neurological Medical History: Denies: Hx Cerebrovascular Accident, Hx Seizures Renal/ Medical History: Denies: Hx Peritoneal Dialysis GI Medical History: Reports: Hx Gastroesophageal Reflux Disease Musculoskeletal Medical History: Denies Hx Arthritis, Reports Hx Musculoskeletal Deformity, Reports Hx Musculoskeletal Trauma Psychiatric Medical History: Reports: Hx Anxiety - Panic attacks, stress Traumatic Medical History: Reports: Hx Fractures - Right fourth metacarpal Past Surgical History: Reports: Hx Orthopedic Surgery - Tendon repair and right ankle; right hand right fourth metacarpal fracture - Immunizations Immunizations up to date: Yes Hx Diphtheria, Pertussis, Tetanus Vaccination: Yes - 2013 Review of Systems - Review of Systems Constitutional: Fever, Malaise EENT: Throat pain Cardiovascular: No symptoms reported Respiratory: No symptoms reported Gastrointestinal: Diarrhea. denies: Nausea, Vomiting Musculoskeletal: Muscle pain Hematologic/Lymphatic: No symptoms reported Neurological/Psychological: No symptoms reported -: Yes All other systems reviewed and negative Physical Exam - Vital signs Vitals: Temp Pulse Resp BP Pulse Ox 100.2 F 108 H 20 182/62 H 100 06/07/20 16:05 06/07/20 16:05 06/07/20 16:05 06/07/20 16:05 06/07/20 16:05 - Notes Notes: GENERAL: Mild acute distress, non-toxic appearance. HEAD: Normal with no signs of head trauma. EYES: PERRLA, EOMI, conjunctiva normal, no discharge. EARS: Hearing grossly intact. Tympanic membranes intact bilaterally without any erythema or bulging. Bilateral outer nails without erythema or swelling. NOSE: Normal. Turbinates are not erythematous, clear discharge is noted. Sinuses are nontender to palpation. THROAT: Oropharynx is normal. Positive for posterior pharyngeal erythema, no exudate. No tonsillar enlargement. NECK: Normal range of motion, no tenderness, supple, no lymphadenopathy, No adenopathy, no JVD. Negative Meningismus, Negative brudzzinski, Negative Kernig's CHEST: Clear breath sounds bilaterally. No wheezes, rales, or rhonchi. CARDIAC: Tachycardic with normal S1 and S2, without murmurs, gallops, or rubs. VASCULAR: No Edema. Peripheral pulses normal and equal in all extremities. ABDOMEN: Normal and soft with no tenderness, no masses or pulsatile masses. GASTROINTESTINAL: Bowel sounds normal GENITOURINARY: Normal, No tenderness LYMPATHTIC: No lymphadenopathy noted. MUSCULOSKELETAL: Good range of motion of all major joints. Extremities without clubbing, cyanosis or edema. NEUROLOGICAL: Alert and oriented x 3. No focal sensory or strength deficits. Speech normal. Follows commands appropriately. PSYCHIATRIC: Normal Affect, judgement and mood. SKIN: Normal appearance with no rashes or lesions. Course - Re-evaluation Re-evalutation: 06/07/20 18:07 Patient is resting comfortably mild distress at this time. Reviewed lab and x- ray results with patient. Covid testing will be done. Patient remains febrile and tachycardic. Will start IV and give fluids and reevaluate. 06/07/20 18:14 06/07/20 19:37 Patient states he is feeling better. He is afebrile. He is nontoxic-appearing, vital signs are stable. He is aware of the need to self quarantine for the next 14 days or until he gets a negative COVID-19 test. If his test is positive he will need to remain self quarantining for the full 14 days. Outpatient follow- up primary care physician if not improving in 2 to 3 days. Tylenol and or Motrin as needed for fevers. Push fluids. Patient was given strict return to the emergency room guidelines. Return for any new or worsening symptoms. All questions were answered. Patient verbalized understanding and agrees with plan of care. - Vital Signs Vital signs: Temp Pulse Resp BP Pulse Ox 99.5 F 95 20 124/109 H 100 06/07/20 19:35 06/07/20 19:35 06/07/20 19:35 06/07/20 19:35 06/07/20 19:35 - Diagnostic Test Radiology reviewed: Reports reviewed Discharge - Discharge Clinical Impression: Person under investigation for COVID-19 Fever Qualifiers: Fever type: unspecified Qualified Code(s): R50.9 - Fever, unspecified URI (upper respiratory infection) Qualifiers: URI type: unspecified URI Qualified Code(s): J06.9 - Acute upper respiratory infection, unspecified Acute pharyngitis Qualifiers: Pharyngitis/tonsillitis etiology: unspecified etiology Qualified Code(s): J02.9 - Acute pharyngitis, unspecified Condition: Stable Disposition: HOME, SELF-CARE Instructions: COVID-19 Guidance for Persons Under Investigation, Fever ([facility]), Sore Throat ([facility]), Upper Respiratory Illness ([facility]) Additional Instructions: Rest, push fluids, Tylenol and or Motrin as needed for fevers. Self quarantine for 14 days or until you get a negative COVID-19 test. Follow-up with your primary care physician if not improving in 2 to 3 days. Return to the emergency room for any new or worsening symptoms.
--- NOTE | 2020-06-07 17:11 | RADIOLOGY REPORT (SQ) ---
EXAM DESCRIPTION: CHEST SINGLE VIEW IMAGES COMPLETED DATE/TIME: 06/07/2020 4:43 pm REASON FOR STUDY: cough;fever COMPARISON: 05/15/2019. EXAM PARAMETERS: NUMBER OF VIEWS: One view. TECHNIQUE: Single frontal radiographic view of the chest acquired. RADIATION DOSE: NA LIMITATIONS: None. FINDINGS: LUNGS AND PLEURA: No opacities, masses or pneumothorax. No pleural effusion. MEDIASTINUM AND HILAR STRUCTURES: No masses. Contour normal. HEART AND VASCULAR STRUCTURES: Heart normal in size. Normal vasculature. BONES: No acute findings. HARDWARE: None in the chest. OTHER: No other significant finding. IMPRESSION: NO ACUTE RADIOGRAPHIC FINDING IN THE CHEST. TECHNICAL DOCUMENTATION: JOB ID: [id number] 2010 [employer]- All Rights Reserved Reading location - IP/workstation name: [email or web address]
[2020-06-07 17:36] LABS: A TYPE INFLUENZA AG NEGATIVE (NEGATIVE); B INFLUENZA AG NEGATIVE (NEGATIVE)
[2020-06-07] MEDS ORDERED: RINGERS SOLUTION,LACTATED 1,000 ML IV ONE (18:14)
[2020-06-07 19:36] VITALS: BP 124/109
== END 2020-06-07 20:15 | disposition home or self-care (01) ==
LOC: ER 16:00
DX: U07.1 COVID-19 (principal); J06.9 Acute upper respiratory infection, unspecified; J02.9 Acute pharyngitis, unspecified; R50.9 Fever, unspecified; M79.10 Myalgia, unspecified site; I10 Essential (primary) hypertension
CPT/HCPCS: 99284; 96360; 96361; 87070; 87880; 87635; 87804; 71045; J3490; J7120; C9803

== ENCOUNTER 2020-06-08 03:26 | Emergency (ER) | payer MEDICAID ==
[2020-06-08 03:35] VITALS: BP 145/94
[2020-06-08] MEDS ORDERED: ACETAMINOPHEN 325 MG TABLET PO ONE (03:47)
== END 2020-06-08 10:55 | disposition left against medical advice (07) ==
LOC: ER 03:26
DX: Z53.21 Procedure and treatment not carried out due to patient leaving prior to being seen by health care provider (principal)